=== PATIENT | female | born 1990 | race Caucasian/White ===

== ENCOUNTER 2019-10-23 08:14 | Outpatient (CLI) | payer BC, SELFPAY ==
--- NOTE | ~2019-10-23 | CT_ITS ---
EXAMINATION: CT abdomen pelvis w con EXAM DATE: 10/23/2019 09:10 INDICATION: Left flank pain, thinks passed kidney stone last night. TECHNIQUE: Spiral CT of the abdomen and pelvis was performed following intravenous injection of 100 m L Omnipaque 350. Axial, coronal and sagittal images were reviewed. The dose-length product (DLP) fo r this examination was 163.33 mGy-cm. The exposure was tailored according to patient size (auto mA e xposure control), and iterative reconstruction (ASIR) was used as additional dose reduction technique . There is no prior study for comparison. FINDINGS: The liver, spleen, adrenal glands and pancreas are unremarkable. Gallbladder is unremarkab le. No biliary obstruction. Portal and splenic veins are patent. Kidneys enhance symmetrically. T here is no hydronephrosis. 2 punctate right calyceal calcifications, one 3 mm left calyceal calcifica tion. The uterus is unremarkable. The bladder is unremarkable. There is no retroperitoneal or pel cyril lymphadenopathy. The appendix is normal. The stomach and small bowel are unremarkable. There is expected amount of c olonic stool. No free intraperitoneal gas. The heart is normal in size. There are no pericardial or pleural effusions. The lung bases are unremarkable. The bones are unremarkable. IMPRESSION: 1. No acute intra-abdominal findings. Reviewed, dictated and finalized at location B.
== END 2019-10-23 08:15 | disposition home or self-care (01) ==
PROVIDERS: Visit Provider Obstetrics & Gynecology
DX: R10.9 Unspecified abdominal pain (principal)
CPT/HCPCS: 74177; Q9967

== ENCOUNTER 2020-08-29 09:40 | Outpatient (RCR) | payer BC, SELFPAY ==
[2020-08-30] MEDS: RHO(D) IMMUNE GLOBULIN 300 MCG/2 ML SYRINGE IM (09:30)
== END 2020-11-27 23:59 | disposition home or self-care (01) ==
LOC: ANHLAB 09:40
PROVIDERS: Visit Provider Obstetrics & Gynecology
DX: Z29.13 Encounter for prophylactic Rho(D) immune globulin (principal); O36.0190 Maternal care for anti-D [Rh] antibodies, unspecified trimester, not applicable or unspecified; Z3A.00 Weeks of gestation of pregnancy not specified
CPT/HCPCS: 36415; 85461; 90384; 96372; J2790

== ENCOUNTER 2020-10-11 22:53 | Observation (INO) | payer BC, SELFPAY ==
--- NOTE | 2020-10-11 22:53 | OBADM ---
This patient, Eugenia Leahy, admitted to the OB room Labor/Delivery/Recovery 105 for observation. Patient/family oriented to hospital policies and general routines including ID bracelet, bed and alarms, visiting hours, pain management, procedures, bathroom and other care routines, personal items, smoking policy, room service/diet, and visiting hours. Patient/Family are encouraged to report perceived risks to care and to ask questions if they do not understand what they are told or what they should do.
[2020-10-11 23:15] VITALS: BMI 23.0
--- NOTE | 2020-10-12 08:06 | P.PNOB_ITS ---
OB - Triage/Final Diagnosis Visit Information Date of evaluation: 10/12/20 Reason for evaluation: threatened labor Comments/Additional reasons for admission: I have assessed the risk for this patient, Eugenia Leahy, and determined [facility]
== END 2020-10-12 01:35 | disposition home or self-care (01) ==
PROVIDERS: Admitting Provider Student in an Organized Health Care Education/Training Program; Visit Provider Student in an Organized Health Care Education/Training Program
DX: O47.1 False labor at or after 37 completed weeks of gestation (principal); Z3A.37 37 weeks gestation of pregnancy
CPT/HCPCS: G0378; G0379

== ENCOUNTER 2020-10-21 08:54 | Inpatient (IN) | payer BC, SELFPAY ==
[2020-10-21] VITALS (13 sets, daily range): BP systolic 92–128; BP diastolic 58–79; PULSE 69–91; RESP 16–18; TEMP 36.3–36.8; O2SAT 100; BMI 23.4
[2020-10-21 09:31] LABS: Basophils Absolute Auto 0.1 K/mm3 (0.0-0.1); Basophils Percent Auto 0.6 % (0.2-1.2); Eosinophils Percent Auto 0.3 % (0-4.4); Hematocrit 33.7 % (37.0-47.0); Hemoglobin 12.1 g/dL (12.0-15.0); Immature Granulocyte Absolute 0.17 K/mm3 (0.00-0.031); Immature Granulocyte Percent A 1.5 % (0-0.5); Lymphocytes Absolute Auto 2.78 K/mm3 (0.9-3.2); Lymphocytes Percent Auto 24.8 % (18.3-44.2); Mean Corpuscular HGB Conc 35.9 g/dl (32-36); Mean Corpuscular Volume 91.8 fl (80-100); Mean Platelet Volume 10.3 fl (7.4-10.4); Monocytes Absolute Auto 1.1 K/mm3 (0.1-0.6); Monocytes Percent Auto 9.4 % (2.6-8.5); Neutrophils Absolute Auto 7.1 K/mm3 (1.3-6.7); Neutrophils Percent Auto 63.4 % (45.5-73.1); Platelet Count Result 173 k/mm3 (150-375); Red Blood Count 3.67 M/mm3 (4.2-5.4); Red Cell Distribution Width 12.8 % (11.5-14.5); White Blood Count 11.2 K/mm3 (4.5-10.0)
[2020-10-21] MEDS: OXYTOCIN 30 UNITS/NS 500 ML 30 UNITS/500 ML BAG 999 UNITS IV CONT (09:49)
--- NOTE | 2020-10-21 09:57 | WPDOBADMIT ---
Obstetrics - Admit Note Admission Note: record reviewed. Additions to the history and/or subsequent changes in the physical findings follow. 30 y/o at 38 4/7 weeks here after gush of clear fluid at 0830. History of rapid delivery. GBS neg. AVSS ABD soft, nontender, gravid, vertex EXT nontender Cervix 7/100/0 NST reactive TOCO: contractions every 2-3 min A: IUP at term with SROM. P: Anticipate .
--- NOTE | 2020-10-21 09:59 | PM.OBPRVD ---
OB - Delivery Note Procedure Delivery date: 10/21/20 Procedure: Induction method: none Delivery monitor: external FHT and external uterine Route of delivery: Laceration Description: None Specimen: Yes (cord blood) Quantitative Blood Loss (ml): 95 Anesthesia type: None Disposition: PACU Complications: None Narrative: 30 y/o at 38 4/7 weeks gestation who presented to the hospital after a gush of fluid at 0830, clear. On arrival here she had SROM diagnosed, with cervix 7/100/0. Her labor progressed rapidly and her cervix dilated completely. She pushed with good effort and delivered the 's head to the perineum. A loose nuchal cord was reduced, then the nose and mouth were bulb suctioned. After a delay, the cord was clamped and cut. The infant was handed off the field. Cord blood was collected. The placenta delivered spontaneously and was grossly normal in appearance. The usual 3 vessel cord was noted. The perineum was intact. Excellent hemostasis resulted as did excellent reapproximation of the normal anatomy. Needle and instrument counts were correct. The patient was taken to recovery room in stable condition. The went to the nursery in stable condition. I was present and scrubbed for the entire delivery. Baby Date of : 10/21/20 Time of : 09:45 Weeks of gestation at delivery: 38 gender: Female Weight (pounds): 7 Weight (ounces): 7 presentation: vertex position: Left Occiput Anterior Placenta delivery description: Spontaneous and Normal Configuration cord vessel description: 3 Vessels, Nuchal Cord and Delayed Cord Clamping score one minute: 8 score five minutes: 9
[2020-10-21] MEDS: OXYTOCIN 30 UNITS/NS 500 ML 30 UNITS/500 ML BAG 125 UNITS IV CONT (10:10)
--- NOTE | 2020-10-21 11:58 | PC.NURSE ---
Patient transferred to post room # 292 per wheelchair. Support person present. Oriented to unit, room, information board, rooming in, admission packet and security measures. Patient verbalizes understanding.
[2020-10-21] MEDS: IBUPROFEN 600 MG TABLET PO ×2 (13:21→21:02)
--- NOTE | 2020-10-21 14:55 | PC.NURSE ---
consult with pt., mother reports this to be 3rd child to breastfeed. Mother states infant has eagerly fed twice since . Mother is able to independently latch infant with appropriate positioning/alignment. She denies any nipple discomfort. Reviewed infant feeding cues, frequencies, duration of feedings, feeding elimination flow sheet, and signs of adequate intake. Nipple care reviewed. Instructed mother to call out for RN assistance if she is unable to latch infant for feeding or she has discomfort with nursing. Instructed feeding should be initiated three hours from start of last feeding or if feeding cues are noted before. Mother voiced understanding of information shared.
[2020-10-21] MEDS: LANOLIN (LANSINOH) 7.5 GM CREAM 1 APPLIC TOPICAL (16:14)
[2020-10-21] MEDS: DOCUSATE SODIUM 100 MG CAPSULE PO (16:14)
[2020-10-22 03:30] VITALS: BP 98/65; PULSE 82; RESP 16; TEMP 36.9
[2020-10-22] MEDS: IBUPROFEN 600 MG TABLET PO ×2 (03:30→09:50)
[2020-10-22 04:50] LABS: Hematocrit 30.7 % (37.0-47.0); Hemoglobin 10.6 g/dL (12.0-15.0)
--- NOTE | 2020-10-22 07:30 | PC.NURSE ---
PT introductions made and plan of care discussed per post , pain management, breast feeding daily care activities and pending discharge to home. PT verbalized understanding and received instructions one to one discussion, mom baby care guide and demonstrations. PT and fob both recipients of such instructions and no barriers to learning identified.
--- NOTE | 2020-10-22 08:56 | P.PNOB_ITS ---
OB - PN: Subj Subjective Date/time seen: 10/22/20 08:56 Narrative: Pain OK. Would like to go home. OB - PN: Obj Data Labs CBC & Chem 7: 10/22/20 04:07 Labs: Laboratory Results - last 24 hr 10/21/20 10/21/20 10/22/20 09:22 09:22 04:07 WBC 11.2 H RBC 3.67 L Hgb 12.1 10.6 L Hct 33.7 L 30.7 L MCV 91.8 MCH 33.0 MCHC 35.9 RDW 12.8 Plt Count 173 MPV 10.3 Immature Gran % (Auto) 1.5 H Neut % (Auto) 63.4 Lymph % (Auto) 24.8 [place] % (Auto) 9.4 H Eos % (Auto) 0.3 Baso % (Auto) 0.6 Lymph # (Auto) 2.78 [place] # (Auto) 1.1 H Eos # (Auto) 0.0 Baso # (Auto) 0.1 Abs Immat Gran (auto) 0.17 H Absolute Neuts (auto) 7.1 H Absolute Nucleated RBC 0.0 Nucleated RBC % 0.0 Blood Type O Negative Antibody Screen Positive Antibody Identification Passive Due to RH Imm Glob Antigen Identification Cancelled GARRY, IgG Interpret Not Performed GARRY, Poly Interpret Negative GARRY, Complement Interp Not Performed OB - PN A/P Plan Comments: A: PPD#1, doing well. P: Home to f/u 6 weeks. Exam Psych: Other: AVSS ABD soft, nontender, fundus firm EXT nontender
--- NOTE | 2020-10-22 08:58 | PM.OBDSVD ---
DS: Admitting Diagnosis Admitting Diagnosis Admitting Diagnosis: IUP at term SROM DS: Discharge Diagnosis Discharge Diagnosis (1) (normal spontaneous vaginal delivery): Code(s): O80 - Encounter for full-term uncomplicated delivery Status: Acute OB - DS: Summary OB Procedures : None OB Procedures Intrapartum: Spontaneous Vag Delivery OB Procedures: : None DS: Data Data Completed and Pending Labs on day of discharge: Labs from last 24 hours 10/22/20 10/21/20 10/21/20 04:07 09:22 09:22 WBC RBC Hgb 10.6 L Hct 30.7 L MCV MCH MCHC RDW Plt Count MPV Immature Gran % (Auto) Neut % (Auto) Lymph % (Auto) [place] % (Auto) Eos % (Auto) Baso % (Auto) Lymph # (Auto) [place] # (Auto) Eos # (Auto) Baso # (Auto) Abs Immat Gran (auto) Absolute Neuts (auto) Absolute Nucleated RBC Nucleated RBC % RPR Pending Blood Type O Negative Antibody Screen Positive Antibody Identification Passive Due to RH Imm Glob Antigen Identification Cancelled GARRY, IgG Interpret Not Performed GARRY, Poly Interpret Negative GARRY, Complement Interp Not Performed 10/21/20 09:22 WBC 11.2 H RBC 3.67 L Hgb 12.1 Hct 33.7 L MCV 91.8 MCH 33.0 MCHC 35.9 RDW 12.8 Plt Count 173 MPV 10.3 Immature Gran % (Auto) 1.5 H Neut % (Auto) 63.4 Lymph % (Auto) 24.8 [place] % (Auto) 9.4 H Eos % (Auto) 0.3 Baso % (Auto) 0.6 Lymph # (Auto) 2.78 [place] # (Auto) 1.1 H Eos # (Auto) 0.0 Baso # (Auto) 0.1 Abs Immat Gran (auto) 0.17 H Absolute Neuts (auto) 7.1 H Absolute Nucleated RBC 0.0 Nucleated RBC % 0.0 RPR Blood Type Antibody Screen Antibody Identification Antigen Identification GARRY, IgG Interpret GARRY, Poly Interpret GARRY, Complement Interp Discharge Plan Discharge Attending physician on discharge: Sravan Goff Discharging Clinician: Sravan Goff Patient Disposition: Home, Self-Care Activity: pelvic rest Diet: regular Discharge Instructions: Education: Mom and Baby Guide Given to: Mother Follow-Up: Call your delivering provider's office for an appointment to be seen in: 4 Weeks Mom and baby should come to the [facility] for the follow-up appointment. Appointment Date/Time: October 24, 2020 at 11:00 am What to expect at your follow-up visit: Blood Pressure Check Call [phone] if you are unable to keep your appointment time. BREAST CARE: * Wear a snug supportive bra. * For engorgement discomfort: Breast Feeding: * Apply warm moist washcloths * Express milk as needed to relieve engorgement * Wear loose clothing Bottle Feeding: * May apply ice packs * For sore nipples: * Identify correct latch-on * Apply warm moist washcloths before and after nursing * Air dry nipples after nursing * May apply Lansinoh cream to nipples PERINEAL CARE: * Until bleeding stops, use your regis bottle after urinating * Change your pad frequently throughout the day * You may take sitz baths several times a day (fill your bathtub with warm water and soak for 20 minutes.) Do NOT bathe in the water * No tub baths until seen by your physician - You may shower ACTIVITY: * Rest as much as possible. * Do not exercise or lift anything heavier than your baby (such as laundry or other children.) * Avoid stairs or driving as much as possible. * Do not put anything into the vagina. No douching, tampons, or sexual activity until seen by physician. NOTIFY PHYSICIAN IF YOU HAVE ANY QUESTIONS OR IF ANY OF THE FOLLOWING SYMPTOMS OCCUR: * If your perineum becomes red, swollen, or more painful than what you have experienced in the hospital. * If your vaginal bleeding becomes foul smelling. * If your vaginal bleeding becomes more heavy than a period or if your bleeding changes from p
[2020-10-22 09:15] VITALS: BP 108/73; PULSE 94; RESP 18; TEMP 36.7; O2SAT 99
--- NOTE | 2020-10-22 09:45 | PC.NURSE ---
Observed mother is able to independently latch with appropriate positioning/alignment. She denies any nipple discomfort, is feeding as required and waking infant to feed if needed. has had at least 8 effective feedings in the past 24 hours, and is currently meeting outcomes for weight, output, jaundice and feeding frequencies. Mother states she feels confident to continue effective at home. Reviewed transition to breast milk, signs of adequate intake, and engorgement/relief. Instructed to call ICP if intake/output less than required. Reviewed regular medications mother is taking. Information provided per Siri. Reviewed community resources on the [facility] website and in the Mom/Baby guide. Information on outpatient services provided. Mother has no further questions at this time.
[2020-10-22] MEDS: DOCUSATE SODIUM 100 MG CAPSULE PO (09:52)
[2020-10-22] MEDS: MULTIVIT/MIN/PREN/FOL AC/IRON TABLET 1 TAB PO (09:52)
[2020-10-22 09:53] VITALS: PULSE 94; RESP 18; O2SAT 99
[2020-10-22] MEDS: ACETAMINOPHEN 325 MG TABLET 650 MG PO (09:53)
--- NOTE | 2020-10-22 12:15 | PC.NURSE ---
PT discharged to home via ambulatory accompanied by spouse and and taken to waiting car. Follow up appts confirmed
[2020-10-22 12:43] LABS: Rapid Plasma Reagin Non-Reactive (NonReactive)
[2020-10-24 10:57] VITALS: BP 108/76; PULSE 83; RESP 16; TEMP 36.9; O2SAT 99
== END 2020-10-22 12:15 | disposition home or self-care (01) | DRG 807 ==
LOC: ANHLDR 08:57 → ANHOB2 12:01
PROVIDERS: Admitting Provider Obstetrics & Gynecology; Visit Provider Obstetrics & Gynecology
DX: O62.3 Precipitate labor (principal); Z37.0 Single live birth; O69.81X0 Labor and delivery complicated by cord around neck, without compression, not applicable or unspecified; Z3A.38 38 weeks gestation of pregnancy
CPT/HCPCS: 36415; 84112; 85014; 85018; 85025; 86592; 86850; 86880; 86900; 86901; 86902; A9270; J2590

== ENCOUNTER 2021-06-16 11:53 | Outpatient (CLI) | payer BC, SELFPAY ==
--- NOTE | ~2021-06-16 | XR_ITS ---
EXAMINATION: XR abdomen/kub 1V INDICATION: Pelvic pain TECHNIQUE: Supine views of the abdomen were obtained on 2 radiographs. COMPARISON: CT, 10/23/2019 FINDINGS: The bowel gas pattern is normal. There are no dilated loops of bowel. There is a phlebolith of the left pelvis. The visualized osseous structures are unremarkable IMPRESSION: 1. No radiographic correlate for the patient's symptoms. Reviewed, dictated and finalized at location A. SORY SOFTWARE ENGINEER
== END 2021-06-16 11:54 | disposition home or self-care (01) ==
LOC: ANHIMG 12:02
PROVIDERS: Visit Provider Nurse Practitioner Adult Health
DX: R10.2 Pelvic and perineal pain (principal)
CPT/HCPCS: 74018

== ENCOUNTER 2022-07-20 13:14 | Outpatient (CLI) | payer BC, SELFPAY ==
--- NOTE | ~2022-07-20 | XR_ITS ---
EXAMINATION: XR abdomen/kub 1V INDICATION: Bilateral renal stones TECHNIQUE: Supine views of the abdomen were obtained on 2 radiographs. COMPARISON: 06/16/2021 FINDINGS: A 2 mm calcification projects in the lower pole of the left kidney. There is a questionable 2 mm stone of the right kidney. No stones are identified along the expected courses of the ureters o r bladder. There is a phlebolith of the left pelvis. The bowel gas pattern is normal. IMPRESSION: 1. Left nephrolithiasis and probable right nephrolithiasis. Reviewed, dictated and finalized at location L.
== END 2022-07-20 13:15 | disposition home or self-care (01) ==
PROVIDERS: PCP Obstetrics & Gynecology; Visit Provider Nurse Practitioner Adult Health
DX: N20.0 Calculus of kidney (principal)
CPT/HCPCS: 74018

== ENCOUNTER 2023-04-20 07:42 | Outpatient (CLI) | payer BC, SELFPAY ==
--- NOTE | ~2023-04-20 | XR_ITS ---
EXAMINATION: XR chest 2V DATE: 04/20/2023 07:57 INDICATION: Chest tightness TECHNIQUE: PA and lateral views of the chest are obtained. COMPARISON: None available FINDINGS: The lungs are free of acute opacities. No pleural effusion or pneumothorax. The cardiomedia stinal silhouette is normal. The visualized bones and soft tissues are unremarkable. IMPRESSION: 1. No acute cardiopulmonary abnormality. Reviewed, dictated and finalized at location B. ECT MANAGEMENT ENGINEER
[2023-04-20 08:47] LABS: Alanine Aminotransferase 19 U/L (6-35); Albumin Level 4.6 g/dL (3.5-5.1); Alkaline Phosphatase 67 U/L (38-126); Anion Gap 6 mmol/L (8-16); Aspartate Amino Transferase 29 U/L (14-36); Bilirubin,Total 0.8 mg/dL (0.2-1.3); Blood Urea Nitrogen 11 mg/dL (7-17); Calcium 9.2 mg/dL (8.4-10.2); Carbon Dioxide 28 mmol/L (22-30); Chloride 103 mmol/L (98-107); Cholesterol 161 mg/dL (0-200); Estimated Glomerular Filt Rate > 60; Glucose 78 mg/dL (65-110); HDL Direct 63 mg/dL; Potassium 4.3 mmol/L (3.4-5.0); Sodium 137 mmol/L (137-145); Triglycerides 67 mg/dL (<150)
[2023-04-20 08:50] LABS: Hemoglobin A1C 4.7 % (<5.7)
[2023-04-20 08:58] LABS: LDL Cholesterol Direct 86 mg/dL
== END 2023-04-20 07:43 | disposition home or self-care (01) ==
PROVIDERS: PCP Emergency Medicine; Visit Provider Emergency Medicine
DX: R07.9 Chest pain, unspecified (principal)
CPT/HCPCS: 36415; 71046; 80053; 80061; 83036

== ENCOUNTER 2023-04-22 09:32 | Outpatient (CLI) | payer BC, SELFPAY ==
--- NOTE | 2023-04-22 10:23 | EST_ITS ---
Patient Info Name: Eugenia Leahy Age: 32 years : 1990 Gender: Female Ht: 63 in Wt: 115 lbs BSA: 1.52 m2 HR: 87 bpm BP: 126 / 79 mmHg Heart Rhythm: Sinus Rhythm Exam Date: 04/22/2023 10:32 AM Exam Location: Echo Lab Patient Status: Outpatient Admit Date: 04/22/2023 Staff Ordering Physician: Jason Casillas MD Attending Provider: Jason Casillas MD Exercise Technologist: Aspen Estrada CT Exercise Physician: Mick Crisostomo DO Exam Type: CA stress test treadmill Study Info Indications R07.89 - Other chest pain A treadmill exercise stress test was performed. Summary 1. 1. Negative Jv exercise stress test for ischemic ST changes by ECG criteria. 2. 2. Good functional capacity, achieving 10 METs of workload. 3. 3. Appropriate HR response to exercise. 4. 4. Appropriate HR recovery at 1 minute post exercise. 5. 5. No imaging with stress testing. 6. 6. Pateint informed of the above results. Protocol: Jv Stress ECG Details Stage: REST Duration (min): 2 min : 41 sec Speed (mph): 0.0 Grade (%): 0 HR (bpm): 86 SBP (mmHg): 126 DBP (mmHg): 79 METS: --- Stage: REST Duration (min): 8 min : 27 sec Speed (mph): 0.0 Grade (%): 0 HR (bpm): 96 SBP (mmHg): 126 DBP (mmHg): 79 METS: --- Stage: STAGE 1 Duration (min): 1 min : 0 sec Speed (mph): 1.7 Grade (%): 10 HR (bpm): 115 SBP (mmHg): 126 DBP (mmHg): 79 METS: --- Stage: STAGE 1 Duration (min): 2 min : 0 sec Speed (mph): 1.7 Grade (%): 10 HR (bpm): 123 SBP (mmHg): 126 DBP (mmHg): 79 METS: --- Stage: STAGE 1 Duration (min): 3 min : 0 sec Speed (mph): 1.7 Grade (%): 10 HR (bpm): 123 SBP (mmHg): 141 DBP (mmHg): 71 METS: --- Stage: STAGE 2 Duration (min): 1 min : 0 sec Speed (mph): 2.5 Grade (%): 12 HR (bpm): 132 SBP (mmHg): 141 DBP (mmHg): 71 METS: --- Stage: STAGE 2 Duration (min): 2 min : 0 sec Speed (mph): 2.5 Grade (%): 12 HR (bpm): 138 SBP (mmHg): 169 DBP (mmHg): 64 METS: --- Stage: STAGE 2 Duration (min): 3 min : 0 sec Speed (mph): 2.5 Grade (%): 12 HR (bpm): 147 SBP (mmHg): 169 DBP (mmHg): 64 METS: --- Stage: STAGE 3 Duration (min): 1 min : 0 sec Speed (mph): 3.4 Grade (%): 14 HR (bpm): 154 SBP (mmHg): 132 DBP (mmHg): 61 METS: --- Stage: STAGE 3 Duration (min): 2 min : 0 sec Speed (mph): 3.4 Grade (%): 14 HR (bpm): 163 SBP (mmHg): 132 DBP (mmHg): 61 METS: --- Stage: STAGE 3 Duration (min): 3 min : 0 sec Speed (mph): 3.4 Grade (%): 14 HR (bpm): 162 SBP (mmHg): 135 DBP (mmHg): 70 METS: --- Stage: STAGE 4 Duration (min): 0 min : 1 sec Speed (mph): 4.2 Grade (%): 16 HR (bpm): 162 SBP (mmHg): 135 DBP (mmHg): 70 METS: --- Stage: RECOVERY Duration (min): 0 min : 58 sec Speed (mph): 0.0 Grade (%): 0 HR (bpm): 142 SBP (mmHg): 135 DBP (mmHg): 70 METS:
== END 2023-04-22 09:33 | disposition home or self-care (01) ==
LOC: ANHCARD 09:33
PROVIDERS: PCP Emergency Medicine; Visit Provider Emergency Medicine
DX: R07.9 Chest pain, unspecified (principal)
CPT/HCPCS: 93017

== ENCOUNTER 2023-12-30 00:19 | Day surgery (SDC) | payer BC, SELFPAY ==
[2023-12-27 15:23] VITALS: BMI 20.7
--- NOTE | 2023-12-27 15:37 | PC.NURSE ---
Report to the Outpatient Waiting Room, entrance under the green pavilion located off [facility], at time _0930 on date _12/30/23 . Planned Procedure Time: 1130 .? Time changes happen often and if your time is changed the preop area will call you the afternoon before. - You and your visitor will be asked to self-screen and do not enter if you have any COVID symptoms. Please call surgeon if you need to reschedule. - A mask is optional within the hospital at this time. Patients may have clear liquids (water, carbonated beverages, clear teas, apple juice) until 3 hours prior to surgery with a maximum of 20 ounces. - No food from midnight until time of surgery and no smoking Take only the following medications with a SIP of water on the morning of surgery: __N/A DO NOT STOP ANY OF YOUR OTHER PRESCRIPTION MEDICATIONS PRIOR TO SURGERY EXCEPT THE FOLLOWING Medications to discontinue per physician N/A Date to take last dose___N/A Please no make-up, nail setswana, hairspray, perfume, deodorant, or body powder the day of surgery.? No jewelry (including any body piercings) or valuables the day of surgery, leave them at home.? Please take a shower or bath the night before, or the morning of, surgery with an antibacterial soap.? Wear comfortable, loose fitting clothing.? Children are encouraged to wear pajamas. - Jewelry must be removed prior to entering the operating room.? Rings and piercings that are not removed may be cut off. - The hospital will not accept responsibility for valuables.? - Please leave all valuables, including medications, at home the day of surgery. If you are going home after surgery, a licensed pizza delivery driver must drive you home.? - NO public transportation without another adult if you receive anesthesia. - We recommend that an adult stay with you for 24 hours following discharge. - We also recommend that you do not drive, make important decision, drink alcoholic beverages, or take any drugs that were not prescribed by your health care provider for at least 24 hours after your discharge time. Follow any additional instructions given to you from your surgeon. Telephone instructions given to __CAROLINEE and asked if any additional questions and then verbalized understanding. Patient advised to call surgeon office or pre surgery nurse liaison [phone] if any additional questions.
--- NOTE | 2023-12-30 00:22 | P.HP_ITS ---
H&P: HPI History of Present Illness Date/Time: 12/30/23 00:22 Chief Complaint: Miscarriage Narrative: 33 y/o at 10w2d by LMP. She had an ultrasound exam in the office on 12/26 which showed an embryo with CRL consistent with 7w6d and no cardiac motion. She has had no bleeding. She has no cramping. She is Rh Neg. Review of Systems Review of Systems: All systems reviewed & are unremarkable except as noted in HPI and below PMFSH Surgical History Surgical History History of foot surgery Family History Family History Other No pertinent family history Social History Social History Smoking status: Never smoker Second hand tobacco smoke exposure: No Alcohol intake: never Substance use: current Substance use type: marijuana Last use: 10/25/23 Lack of Transportation: No Lack of Food: Never True Current Housing: I Have Housing Concerned About Future Housing: No Difficulty Paying Gas/Electric Bills: No Difficulty Paying for Meds: No Currently Unemployed: No Education: Bachelor's Degree Difficulty w/ Childcare or Family Care: No Living arrangements: with family Spiritual care concerns: No Meds Home Medications and Allergies Home Medications Medication Instructions Recorded Confirmed Type No Home Medications 12/27/23 12/27/23 History Allergies Allergy/AdvReac Type Severity Reaction Status Date / Time No Known Allergies Allergy Unknown Verified 12/27/23 15:30 Exam Const: Orientation/consciousness: patient oriented x3 Other: Well-developed, well-nourished female in no acute distress. Neck: Thyroid: thyroid normal Lymphatic: no lymphadenopathy noted (in neck, axilla or inguinal nodes) Resp: Effort & Inspection: normal respiratory effort Auscultation: clear to auscultation bilaterally Cardio: Rate: regular rate Rhythm: regular rhythm Heart sounds: S1 no rmal heart sound present and S2 normal heart sound present GI: Other: ABD: Soft, nontender, nondistended. No guarding or rebound tenderness. No hepatosplenomegaly. : General: Yes no CVA tenderness Other: Deferred to OR Back/Spine/Pelvis: Back: no CVA tenderness Skin: General skin exam: normal color and no rashes or lesions noted Neuro: General: patient oriented x3 Extrem: Other: Extremities: nontender with no edema Psych: Mental Status: mental status grossly normal Affect: normal affect Assessment and Plan Assessment and plan (1) Missed : Code(s): O02.1 - Missed Status: Acute Assessment and Plan: A: Missed spontaneous P: Offered expectant management vs surgical management. She prefers the latter. Specifically, I have offered her dilation and suction curettage. She understands risks of surgery to include risks of anesthesia, risks of pain, infection, bleeding, blood products, thromboembolic phenomena and damage to adjacent structures such as bowel, bladder, ureters, blood vessels and nerves. She understands all these risks and elects to proceed with surgery.
--- NOTE | 2023-12-30 07:29 | P.PNAN_ITS ---
Anes - Initial Pre Proc Eval Procedure: Operation Date: 12/30/23 11:00 Proposed Procedures p Suction Dilatation and Curettage - Sravan Goff MD Date/Time: 12/30/23 07:29 Surgeon: Sravan Goff MD Pre Op Diagnosis: missed ab Patient Data Age: 33 Gender: F Height: 1.6 m Weight: 53 kg Allergies Allergy/AdvReac Type Severity Reaction Status Date / Time nitrofurantoin Allergy Severe Hives Verified 12/30/23 09:06 [From Macrobid] Home Medications Medication Instructions Recorded Confirmed Type No Home Medications 12/27/23 12/27/23 History Patient hx anesthesia problems: none Family hx anesthesia problems: none Results Review: All pre-operative results and documents have been reviewed as part of the pre- operative evaluation. [facility] Past Medical History Medical History (Updated 12/30/23 @ 07:29 by Valentin Gaming DO) Anxiety Surgical History Surgical History History of foot surgery Family History Family History Other No pertinent family history Social History Social History Smoking status: Never smoker Second hand tobacco smoke exposure: No Alcohol intake: never Substance use: current Substance use type: marijuana Last use: 10/25/23 Lack of Transportation: No Lack of Food: Never True Current Housing: I Have Housing Concerned About Future Housing: No Difficulty Paying Gas/Electric Bills: No Difficulty Paying for Meds: No Currently Unemployed: No Education: Bachelor's Degree Difficulty w/ Childcare or Family Care: No Living arrangements: with family Spiritual care concerns: No Anes - Eval Final PreProcedure Day of Procedure 12/30/23 07:29 Patient weight: normal Heart: regular rate and rhythm Lungs: clear to auscultation and normal air movement Airway: Mallampati scale class II Neurological: alert and oriented Last oral intake: >/= 8 hours ASA classification: II Emergent: no Anesthetic plan: proceed Anesthesia type and monitoring: general GIVS and standard monitoring Results Review: All pre-operative results and documents have been reviewed as part of the pre- operative evaluation. Informed Consent: The patient's anesthetic plan and its attendant risks and benefits were discussed with the patient/family/POA. Questions were solicited and answers provided to the satisfaction of the patient/family/POA.
[2023-12-30 09:13] VITALS: BP 117/80; PULSE 99; RESP 20; TEMP 37; O2SAT 100
[2023-12-30] MEDS: LACTATED RINGERS 1,000 ML 30 ML IV CONT (09:35)
[2023-12-30] MEDS: ACETAMINOPHEN 500 MG TABLET 1000 MG PO (09:46)
--- NOTE | 2023-12-30 11:11 | WPDHPUPDATE1 ---
History and Physical Update Update Date/Time: 12/30/23 11:11 History and Physical has been reviewed, including an updated exam of the patient. There are NO changes in the patient's condition. Risks, benefits, and alternatives have been discussed and questions answered. Patient agrees to proceed with procedure.
[2023-12-30] MEDS: LIDOCAINE HCL 1% LOCAL INJ 10 ML VIAL INFILTRATE (11:16)
--- NOTE | 2023-12-30 11:35 | W.PM.PROC2 ---
Procedure Note - Detailed Date of Procedure 12/30/23 Pre-op Diagnosis Missed Spontaneous Post-op Diagnosis Same Procedure Performed Dilation and suction curettage Surgeon Sravan Goff MD Anesthesia MAC and Local (1% lidocaine) Findings POC noted Description of Procedure The patient was taken to the operating room where she was prepared and draped in the usual sterile fashion in the dorsal lithotomy position. The bladder was drained with a red rubber catheter. A sterile speculum was placed into the vagina. The anterior lip of the cervix was grasped with a single-tooth tenaculum. Ten mL of 1% lidocaine was administered in a paracervical block. The cervix was gently dilated using Hegar dilators until an 8 mm dilator could be passed. The 8mm curved tip suction curette was advanced. Suction curettage was performed and products of conception were aspirated. Sharp curettage was then performed until a good uterine cry was noted. A final pass with the suction curette was made. The tenaculum was removed. Hemostasis was excellent. Sponge, lap, needle and instrument counts were correct. The patient was taken to the recovery room in stable condition. I was present and scrubbed for the entire procedure. Implants None Estimated Blood Loss 50 Drains No Packing No Pathology Yes (Endometrial curettings) Complications None Condition Stable Disposition PACU
[2023-12-30 11:40] VITALS: BP 110/73; PULSE 82; RESP 15; O2SAT 100
[2023-12-30] MEDS: RHO(D) IMMUNE GLOBULIN 300 MCG/2 ML SYRINGE IM (11:58)
[2023-12-30 12:10] VITALS: BP 117/71; PULSE 97; RESP 18; O2SAT 100
[2023-12-30 12:25] VITALS: BP 108/72; PULSE 94; RESP 20
== END 2023-12-30 12:29 | disposition home or self-care (01) ==
PROVIDERS: PCP Emergency Medicine; Visit Provider Obstetrics & Gynecology
PROC: (CPT 59820; principal; 2023-12-30 11:00)
DX: O02.1 Missed abortion (principal)
CPT/HCPCS: 59820; 36415; 85461; 86850; 86900; 86901; 88305; 90384; A9270; J1100; J2250; J2405; J2704; J2790; J3010; J7120

== ENCOUNTER 2024-03-15 16:01 | Outpatient (CLI) | payer BC, SELFPAY ==
--- NOTE | ~2024-03-15 | XR_ITS ---
Exam: Abdomen 1V HISTORY: bilateral renal stone COMPARISON: None. TECHNIQUE: Supine images of the abdomen and pelvis. FINDINGS: Bowel gas pattern is non-obstructive. There is no free air or deep sulci. Redemonstration of a 2.5 mm density projecting over the left kidney. Extensive fecal stasis projects over the expected region of the right kidney, limiting evaluation. Lung bases are unremarkable. Bones and soft tissues are unremarkable. IMPRESSION: Left renal calculus, as detailed above. Reviewed, dictated and finalized at location A. R COLORER
== END 2024-03-15 16:02 | disposition home or self-care (01) ==
PROVIDERS: PCP Emergency Medicine; Visit Provider Physician Assistant
DX: N20.0 Calculus of kidney (principal)
CPT/HCPCS: 74018

== ENCOUNTER 2024-03-18 09:47 | Emergency (ER) | payer BC, SELFPAY ==
[2024-03-18] VITALS (11 sets, daily range): BP systolic 107–116; BP diastolic 68–87; PULSE 70–107; RESP 14–16; TEMP 36.8; O2SAT 94–100
--- NOTE | ~2024-03-18 | CT_ITS ---
EXAMINATION: CT brain wo con DATE: 03/18/2024 15:27 INDICATION: possible seizure . TECHNIQUE: Computed tomography (CT) of the head was performed without intravenous contrast. The mA wa s adjusted according to patient size. Iterative reconstruction technique was employed. The dose-lengt h product was 605.33 mGy-cm. COMPARISON: None. FINDINGS: No acute intracranial hemorrhage or extra-axial fluid collection. No hydrocephalus, mass, or herniation. No acute ischemic infarct. Unremarkable dural venous sinus attenuation. No acute osseous abnormality. The aerated spaces are clear. IMPRESSION: No acute intracranial process. Reviewed, dictated and finalized at location K. CTOR LEARNING AND DEVELOPMENT
--- NOTE | ~2024-03-18 | CT_ITS ---
EXAMINATION: CT abdomen pelvis wo con DATE: 03/18/2024 15:26 INDICATION: left flank pain TECHNIQUE: Computed tomography (CT) of the abdomen and pelvis was performed without intravenous contr ast. Automated exposure control and iterative reconstruction technique were employed. The dose-length product was 166.56 mGy-cm. COMPARISON: 10/23/2019. FINDINGS: Lower thorax: Unremarkable Liver: Multiple liver cysts measuring up to 3.6 cm in the left lobe. Biliary/Gallbladder: Gallbladder is normal. No bile duct dilation. Pancreas: No mass or duct dilation. Spleen: Normal. Adrenals:No mass. Kidneys: No suspicious mass, obstructing stone, or hydronephrosis. Bilateral punctate nonobstructive calculi. GI tract: No small or large bowel dilation. Normal appendix. Mesentery/Peritoneum: No ascites, mass, or free air. Retroperitoneum: No mass. Pelvis: Pelvic organs are within normal limits. Soft Tissues: Soft tissues and body wall unremarkable. Bones: No acute osseous finding. IMPRESSION: No acute abdominopelvic process detected. Reviewed, dictated and finalized at location K. FARM MANAGER
--- NOTE | 2024-03-18 14:23 | ED_ITS ---
HPI - Back Pain/Injury General Chief Complaint: Back Pain/Injury Stated Complaint: bilateral kidney pain Time Seen by Provider: 03/18/24 13:42 Source: patient and RN notes reviewed Mode of arrival: ambulatory Limitations: no limitations History of Present Illness HPI Narrative: This is a 33 year old female who presents for evaluation of kidney stones. Patient states she has been having left flank pain since . She reports her pain is intermittent but it is worsening. She called her urologist office and she had an xray done on Tuesday. She reports nausea but denies vomiting or fever. She reports her urine has been pink at times. She denies abdominal pain. She also reports throbbing frontal headache. Related Data Allergies Allergy/AdvReac Type Severity Reaction Status Date / Time nitrofurantoin Allergy Severe Hives Verified 12/30/23 09:06 [From Macrobid] Review of Systems Review of Systems: All systems reviewed & are unremarkable except as noted in HPI and below PMFSH Past Medical History Medical History Anxiety Surgical History Surgical History History of foot surgery Family History Family History Other No pertinent family history Social History Social History Smoking status: Never smoker Second hand tobacco smoke exposure: No Alcohol intake: never Substance use: current Substance use type: marijuana Last use: 10/25/23 Lack of Transportation: No Lack of Food: Never True Current Housing: I Have Housing Concerned About Future Housing: No Difficulty Paying Gas/Electric Bills: No Difficulty Paying for Meds: No Currently Unemployed: No Education: Bachelor's Degree Difficulty w/ Childcare or Family Care: No Living arrangements: with family Spiritual care concerns: No Exam Const: General: no acute distress and alert Nutritional Appearance: well nourished Orientation/consciousness: patient oriented x3 Limitations: no limitations HENMT: Head: normal to inspection Eyes: Pupils: Equal, round and reactive pupils present EOM: EOMs intact bilaterally Chest: Chest palpation & inspection: normal inspection of the chest Resp: Effort & Inspection: normal respiratory effort Auscultation: clear to auscultation bilaterally Cardio: Rate: regular rate Rhythm: regular rhythm Heart sounds: no murmurs GI: Auscultation: normal bowel sounds : General: Yes no CVA tenderness Back/Spine/Pelvis: Back: no CVA tenderness Skin: General skin exam: normal color Rashes: no rashes Wounds: no wounds Neuro: General: patient oriented x3 and moves all extremities Extrem: General: normal to inspection Psych: Mental Status: mental status grossly normal Affect: normal affect Attitude: cooperative Course Reevaluation(s) Reevaluation #1: I discussed labs and imaging with patient and her mother. She reports her headache has resolved after IV fluids, compazine and toradol. Urinalysis shows ketosis. Patient is not eating very much. She reports nausea this week. She is also have increased anxiety. We discussed her syncopal episodes. Patient has syncopal episodes of IV sticks. It is reported that patient had episode in which nurse was sticking for an IV and patient felt like she was going to pass out. Patient went unresponsive for 30 seconds , no shaking, no postictal. mother witnessed this episode. I discussed this sounds like vasovagal response. They are comfortable with discharge and follow up with PCP or OBGYN regarding anxiety that may be due to Date: 03/18/24 Time: 16:00 Consultations Date: 03/18/24 Time: 16:41 Vital Signs Vital signs: Vital Signs Pulse Rate 92 03/18/24 13:37 Respiratory Rate 16 03/18/24 13:37 Blood Pressure 116/87 03/18/24 13:37 Pulse Oximetry 94 03/18/24 13:37 Temperature 98.3 F 03/18/24 14:29 Pulse Rate 107 H 03/18/24 16:00 Respiratory Rate 14 03/18/24 16:00 Blood Pressure 109/74 03/18/24 15:01 Pulse Oximetry 98 03/18/24 16:00 MDM - Back Pain/Injury Differential Diagnosis Differential diagnosis: Likely strain of lumbar region, renal colic, pyelon ephritis and other (dehydration) Medical Records Attestation: I reviewed the patient's medical records. Lab Data Attestation: I reviewed the patient's lab results. 03/18/24 14:51 03/18/24 14:51 Labs: Lab Results 03/18/24 Range/Units 14:51 WBC 9.1 (4.5-10.0) K/mm3 RBC 4.28 (4.2-5.4) M/mm3 Hgb 14.0 D (12.0-15.0) g/dL Hct 38.7 (37.0-47.0) % MCV 90.4 (80-100) fl MCH 32.7 (26-34) pg MCHC 36.2 H (32-36) g/dl RDW 11.9 (11.5-14.5) % Plt Count 290 D (150-375) k/mm3 MPV 9.4 (7.4-10.4) fl Immature Gran % (Auto) 0.2 (0-0.5) % Neut % (Auto) 77.2 H (45.5-73.1) % Lymph % (Auto) 17.2 L (18.3-44.2) % [place] % (Auto) 5.1 (2.6-8.5) % Eos % (Auto) 0.0 (0-4.4) % Baso % (Auto) 0.3 (0.2-1.2) % Lymph # (Auto) 1.56 (0.9-3.2) K/mm3 [place] # (Auto) 0.5 (0.1-0.6) K/mm3 Eos # (Auto) 0.0 (0-0.3) K/mm3 Baso # (Auto) 0.0 (0.0-0.1) K/mm3 Abs Immat Gran (auto) 0.02 (0.00-0.031) K/mm3 Absolute Neuts (auto) 7.0 H (1.3-6.7) K/mm3 Absolute Nucleated RBC 0.000 (0.0-0.012) K/mm3 Nucleated RBC % 0.0 (0.0-0.2) % % Immature Plt Fraction 2.1 (0.9-11.2) % Sodium 137 (137-145) mmol/L Potassium 3.6 (3.4-5.0) mmol/L Chloride 100 (98-107) mmol/L Carbon Dioxide 26 (22-30) mmol/L Anion Gap 11 (4-12) mmol/L BUN 8 (7-17) mg/dL Creatinine 0.60 L (0.7-1.0) mg/dL Estim Creat Clear Calc 89 ml/min Estimated GFR > 60 (59 - ) Glucose 79 (65-110) mg/dL Calcium 9.4 (8.4-10.2) mg/dL Total Bilirubin 1.1 (0.2-1.3) mg/dL AST 22 (14-36) U/L ALT 12 (6-35) U/L Alkaline Phosphatase 54 (38-126) U/L Total Protein 7.0 (6.3-8.2) g/dL Albumin 4.6 (3.5-5.1) g/dL Urine Color Yellow (Yellow) Urine Appearance Clear (Clear) Urine pH 5.5 (5.0-9.0) Ur Specific [place] 1.018 (1.001-1.035) Urine Protein Negative (Negative) mg/dL Urine Glucose (UA) Negative (Negative) mg/dL Urine Ketones 4+ H (Negative) mg/dL Ur Blood (Man) Negative (Negative) Urine Nitrate Negative (Negative) Urine Bilirubin Negative (Negative) Urine Urobilinogen 1.0 (<2.0) mg/dL Leukocyte Esterase Rfl Negative (Negative) JOSE/UL Imaging Data Radiologist's impression: ITS Impressions Head CT 03/18/24 15:32 IMPRESSION: No acute intracranial process. Abdomen/Pelvis CT 03/18/24 15:38 IMPRESSION: No acute abdominopelvic process detected. ECG Data EKG #1: Attestation: I personally reviewed and interpreted this ECG as follows: ECG completion date: 03/18/24 ECG completion time: 16:38 EKG Interpretation: normal rate (85), no ST changes, NL axis and no acute changes Discharge Plan Discharge Clinical Impression: Acute left-sided back pain, Acute dehydration, Syncope, vasovagal Patient Disposition: Home, Self-Care Condition: Stable Instructions: Antibiotic Form, Syncope (ED), Acute Low Back Pain (ED) Additional Instructions: Please drink plenty of fluids and eat 3 proper meals a day. Call your primary care provider or your OBGYN to discuss your anxiety issues. REturn to ER if symptoms worsen. Prescriptions: New ondansetron 4 mg tablet,disintegrating 4 mg PO Q8H PRN (Reason: nausea and vomiting) Qty: 14 0RF No Action hydrocodone-acetaminophen 5-325 mg tablet 1 - 2 tablet PO Q6H PRN (Reason: pain) Qty: 20 0RF Follow-up/Referrals: Jason Casillas MD [Primary Care Provider] -
--- NOTE | 2024-03-18 14:42 | PC.NURSE ---
At approx 14:37 when RN starting IV, pt was already in lying down position when she stated that she was going to pass out. Pt had syncopal episode, however, her back arched up, head tilted back, bilateral pupils became very dilated. Pt's mother reports she passes out frequently, and tried to lift her legs but was having trouble due to pt's stiffness. RN laid down HOB and was holding IV site, as it was not yet taped down when this started. Pt was unresponsive for approximately 20 seconds where she became very pale. Afterward, pt quickly became responsive and was aware that she passed out, was instantly A&Ox4. Pt's mother stated that she normally doesn't get tense like that when she passes out. Pt reconnected to monitors. MD Andino made aware, plan to add on a head CT.
[2024-03-18] MEDS: SODIUM CHLORIDE 0.9% IV 1,000 ML 999 ML IV CONT (14:43)
[2024-03-18] MEDS: PROCHLORPERAZINE EDISYLATE 10 MG/2 ML VIAL IV PUSH (14:44)
[2024-03-18] MEDS: KETOROLAC 15 MG/ML VIAL (*BKC) IV PUSH (14:48)
--- NOTE | 2024-03-18 15:02 | ECG_ITS ---
Test Date: 2024-03-18 16:38:30 Measurements Intervals [place] Rate: 85 P: 68 TX: 145 QRS: 46 QRSD: 90 T: 36 QT: 385 QTc: 458 Interpretive Statements SINUS RHYTHM BORDERLINE ST-T WAVE ABNORMALITY- INFERIOR LEADS BASELINE ARTIFACT- I, II, III, AVR, AVL, AVF, V1-V3 BORDERLINE ECG No previous ECG available for comparison Electronically Signed On 03-18-2024 18:52:19 SCIENTIST/ENGINEER by Mick Crisostomo D.O.
[2024-03-18 15:03] LABS: Add Urine Microscopic? NO; Appearance Urine Clear (Clear); Bilirubin Urine Negative (Negative); Blood Urine Negative (Negative); Color Urine Yellow (Yellow); Glucose Urine UA Negative (Negative); Ketones Urine 4+ mg/dL (Negative); Leukocyte Esterase Ur Negative LEU/UL (Negative); Nitrate Urine Negative (Negative); Protein Urine Negative (Negative); Specific Grav Ur 1.018 (1.001-1.035); pH Urine 5.5 (5.0-9.0)
[2024-03-18 15:16] LABS: Alanine Aminotransferase 12 U/L (6-35); Albumin Level 4.6 g/dL (3.5-5.1); Alkaline Phosphatase 54 U/L (38-126); Anion Gap 11 mmol/L (4-12); Aspartate Amino Transferase 22 U/L (14-36); Bilirubin,Total 1.1 mg/dL (0.2-1.3); Blood Urea Nitrogen 8 mg/dL (7-17); Calcium 9.4 mg/dL (8.4-10.2); Carbon Dioxide 26 mmol/L (22-30); Chloride 100 mmol/L (98-107); Estimated CRCL calculation 89 ml/min; Estimated Glomerular Filt Rate > 60; Glucose 79 mg/dL (65-110); Potassium 3.6 mmol/L (3.4-5.0); Sodium 137 mmol/L (137-145)
[2024-03-18 15:24] LABS: Basophils Percent Auto 0.3 % (0.2-1.2); Hematocrit 38.7 % (37.0-47.0); Immature Granulocyte Absolute 0.02 K/mm3 (0.00-0.031); Immature Granulocyte Percent A 0.2 % (0-0.5); Immature Platelet Fraction Pct 2.1 % (0.9-11.2); Lymphocytes Absolute Auto 1.56 K/mm3 (0.9-3.2); Lymphocytes Percent Auto 17.2 % (18.3-44.2); Mean Corpuscular HGB Conc 36.2 g/dl (32-36); Mean Corpuscular Hemoglobin 32.7 pg (26-34); Mean Corpuscular Volume 90.4 fl (80-100); Mean Platelet Volume 9.4 fl (7.4-10.4); Monocytes Absolute Auto 0.5 K/mm3 (0.1-0.6); Monocytes Percent Auto 5.1 % (2.6-8.5); Neutrophils Percent Auto 77.2 % (45.5-73.1); Platelet Count Result 290 k/mm3 (150-375); Red Blood Count 4.28 M/mm3 (4.2-5.4); Red Cell Distribution Width 11.9 % (11.5-14.5); White Blood Count 9.1 K/mm3 (4.5-10.0)
[2024-03-19 10:05] LABS: BEDSIDEPREGUCG Negative (Negative)
== END 2024-03-18 17:09 | disposition home or self-care (01) ==
PROVIDERS: Emergency Provider General Practice; PCP Emergency Medicine
DX: M54.9 Dorsalgia, unspecified (principal); E86.0 Dehydration; R55 Syncope and collapse; F41.9 Anxiety disorder, unspecified
CPT/HCPCS: 36415; 70450; 74176; 80053; 81003; 81025; 85025; 85055; 93005; 96361; 96374; 96375; 99284; J0780; J1885; J7030

== ENCOUNTER 2024-08-06 11:25 | Outpatient (CLI) | payer BC, SELFPAY ==
--- OUTSIDE RECORDS SUMMARY | 2024-08-06 13:24 | XMS_ITS | Referral Summary ---
Author Organization [address] Address [address] [place] [id number] Care Team Providers Care Assistant Teacher Primary Name Role Phone Unknown, Notinfile Primary Care Provider Unavail able Unknown, Notinfile Unavailable Unavailable Allergies No known active allergies Medications escitalopram (LEXAPRO) 10 mg tablet Take 1 tablet (10 mg total) by mouth daily 10/10/2022 Active Active Problems No known active problems Social History Tobacco Use Types Packs/Day Years Used Date Smoking Tobacco: Never Assessed Comments Unknown Sex and Gender Information Value Date Recorded Sex Assigned at Not on file 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 Gender Identity Not on file Sexual Orientation Not on file Last Filed Vital Signs Vital Sign Reading Time Taken Comments Blood Pressure 115/75 01/09/2023 5:34 PM CDT Pulse 90 01/09/2023 5:34 PM CDT Temperature 37 C (98.6 F) 01/09/2023 5:34 PM CDT Respiratory Rate 16 01/09/2023 5:34 PM CDT Oxygen Saturation 98% 01/09/2023 5:34 PM CDT Inhaled Oxygen Concentration - - Weight 52.2 kg (115 lb) 01/09/2023 5:34 PM CDT Height 160 cm (5' 3 ) 01/09/2023 5:34 PM CDT Body Mass Index 20.37 01/09/2023 5:34 PM CDT Plan of Treatment Not on file Insurance [place] [id number] [place] [employer] [employer] [place] Care Teams Assistant Teacher Primary Relationship Specialty Start Date End Date Unknown, Notinfile PCP - General 01/09/23 Unknown, Notinfile 01/09/23
--- OUTSIDE RECORDS SUMMARY | 2024-08-06 13:24 | XMS_ITS | Clinical Summary ---
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 Gender Identity Not on file Sexual Orientation Not on file Obstetrics History Last Filed Vital Signs Vital Sign Reading [...] 01/09/2023 5:34 PM CDT Plan of Treatment Health Maintenance Due Date Last Done Comments Cervical Cancer Screening 1989 Depression Screening 1989 Hepatitis C Screening 1989 Varicella Vaccines (1 of 2 - 13+ 2-dose series) 2002 Regular Well Visit/Exam 18-64 2007 Covid-19 Vaccine (2023- season) 2024 03/27/2021, 08/04/2020, 07/13/2020 Influenza Vaccine (#1) 2024 03/27/2021, 2014 DTaP/Tdap/Td Vaccine (9 - Td or Tdap) 08/18/2030 08/18/2020, 09/21/2016, 04/20/2013, Additional history exists Hepatitis B Screening Completed 09/09/2014, 015 HPV Vaccines Aged Out No longer eligi ble based on patient's age to complete this topic Pneumococcal vaccine <65 Aged Out No longer eligible based on patient's age to complete this topic Insurance [employer] [place] [employer] [place] [employer] [place] [employer] [place] Care Teams Water Resource Manager Relationship Specialty Start Date End Date Unknown, Notinfile PCP - General 01/09/23 Unknown, Notinfile 01/09/23
--- OUTSIDE RECORDS SUMMARY | 2024-08-06 13:24 | XMS_ITS | Continuity of Care Document ---
Author Organization [facility] Address [address] [place] [address] Phone Care Team Providers Care Biscuit Maker Name Role Phone Inge HERNADEZ, Gabby Unavailable [...] Encounter [facility], [address], [place], [place], [id number] , tel: [phone] [facility] No Information 7 Rosa Pierre. [address], [place], [place], [address], [place]. [phone] OFFICE OUTPT EST 25 MIN [facility], [address], [place], [place], [id number] , tel: [phone] [facility] IOB (chief complaint) Encounter for suprvsn of normal , first trimesterEncounter for other screening for genetic and chromosomal anomalies9 weeks gestation of pregnancyEncntr for barrel drainer exam (general) (routine) w abnormal findings 6 Rosa Pierre. [address], [place], [place], [address], [place]. tel:[phone] Referring Provider: Gabby cervantes, [address], [place], [address]. [phone] [facility], [address], [place], [place], [address] , tel: [phone] [facility] No Information 6 Dary Oneil. [address], [place], [place], [address], [place]. tel:[phone] Referring Provider: Clarice Foote, [address], [place], [address]. tel:[phone] [facility], [address], [place], [place], [address] , tel: [phone] [facility] routine (chief complaint) Anxiety (chief complaint) Encounter for suprvsn of normal , first trimesterLess than 8 weeks gestation of 6 Management Case. [address], [place], [place], [address], [place]. tel:[phone] Referring Provider: Gabby cervantes, [address], [place], [address]. tel:[phone] lting Provider: Anel Nobles, [address], [place], [address]. tel:[phone] OFFICE O/P EST 5 MIN [facility], [address], [place], [place], [id number] , [place] tel: [phone] [facility] PT only (chief complaint) Encounter for test, result positiveEncounter for test, result unknown 6 Nurse Registered. [address], [place], [place], [address], [place]. tel:[phone] Referring Provider: Registered Nurse, [address], [place], [address]. tel:[phone] [facility], [address], [place], [place], [address] , [place] tel: [phone] [facility] No Information Dec- 6 Tepe Clarice. [address], [place], [place], [address], [place]. tel:[phone] Referring Provider: Gabby cervantes, [address], [place], [address]. tel:[phone] 1ST COMPRE PREV MED E/M NEW PT 18-39 [facility], [address], [place], [place], [address] , [place] tel: [phone] [facility] annual exam (chief complaint) Encounter for routine barrel drainer exam w/ abnormal findingAbnormal uterine bleedingEncntr screen for infections w sexl mode of transmissEncounter for immunizationEncoun ter for other screening for cancer of breast Sep- 6 Rosa Pierre. [address], [place], [place], [address], [place]. tel:[phone] Referring Provider: Gabby cervantes, [address], [place], [address]. tel:[phone] Family History Family Member Type Diagnosis Age [...] Record Payers Payer name Insurance type Covered republican ID Authoriza tion(s) No Information Social History Type Description Quantity Date Captured Comments Alcohol Use Details Unknown Caffeine Use Details Unknown Tobacco Use Status No Information Smoking Status No Information Sex Female Chief Complaint And Reason For Visit No Information Reason For Referral Reason For Referral No Information Plan Of Treatment Date Type Action Status Referral Referred To: [facility] Ul[facility]ounds [address], [place], [phone] Ordered: Referrals: Radiology. [facility] Ultrasounds. 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 h/o STISA, one male partner x 8 years, no condomsMOC - ARIADNE (unsure of name of pill, desires 3 packs at a time)s/p Gardasil Functional Status Date Functional Assessmen t No Information Instructions Date Instruction Additional Infor mation Reviewed breast self-awareness R elated to Encounter for routine barrel drainer exam w/ abnormal finding Use condoms for prev ention of sexually transmitted infections Related to Encntr screen for infections w sexl mode of transmiss Assessments Type Assessment Date No Information Patient Care Teams Name Effective Dates (start - stop) Status Members No Information
[2024-08-06] MEDS: RHO(D) IMMUNE GLOBULIN 300 MCG/2 ML SYRINGE IM (17:28)
== END 2024-08-06 11:26 | disposition home or self-care (01) ==
PROVIDERS: Visit Provider Obstetrics & Gynecology
DX: O46.90 Antepartum hemorrhage, unspecified, unspecified trimester (principal); Z3A.00 Weeks of gestation of pregnancy not specified; Z67.91 Unspecified blood type, Rh negative
CPT/HCPCS: 36415; 85461; 86850; 86900; 86901; 90384; 96372; J2790

== ENCOUNTER 2024-12-27 07:05 | Outpatient (RCR) | payer BC, SELFPAY ==
--- OUTSIDE RECORDS SUMMARY | 2016-10-14 04:02 | XMS_ITS | Continuity of Care Document ---
Author Organization [facility] Address [address] [place] [address] Phone Care Team Providers Care Item Processor Name Role Phone Inge HERNADEZ, Gabby Unavailable [...] Encounter [facility], [address], [place], [place], [address] , tel: [phone] [facility] No Information 7 Rosa Pierre. [address], [place], [place], [address], [place]. [phone] OFFICE OUTPT EST 25 MIN [facility], [address], [place], [place], [address] , tel: [phone] [facility] IOB (chief complaint) Encounter for suprvsn of normal , first trimesterEncounter for other screening for genetic and chromosomal anomalies9 weeks gestation of pregnancyEncntr for metal handler exam (general) (routine) w abnormal findings 6 Rosa Pierre. [address], [place], [place], [address], [place]. tel:[phone] Referring Provider: Gabby cervantes, [address], [place], [address]. [phone] [facility], [address], [place], [place], [address] , tel: [phone] [facility] No Information 6 Dary Oneil. [address], [place], [place], [address], [place]. tel:[phone] Referring Provider: Clarice Foote, [address], [place], [address]. tel:[phone] [facility], [address], [place], [place], [address] , tel: [phone] [facility] routine (chief complaint) Anxiety (chief complaint) Encounter for suprvsn of normal , first trimesterLess than 8 weeks gestation of 6 Management Case. [address], [place], [place], [address], [place]. tel:[phone] Referring Provider: Gabby cervantes, [address], [place], [address]. tel:[phone] lting Provider: Anel Nobles, [address], [place], [address]. tel:[phone] OFFICE O/P EST 5 MIN [facility], [address], [place], [place], [address] , [place] tel: [phone] [facility] PT only (chief complaint) Encounter for test, result positiveEncounter for test, result unknown 6 Nurse Registered. [address], [place], [place], [address], [place]. tel:[phone] Referring Provider: Registered Nurse, [address], [place], [address]. tel:[phone] [facility], [address], [place], [place], [address] , [place] tel: [phone] [facility] No Information Dec- 6 Tepe Clarice. [address], [place], [place], [address], [place]. tel:[phone] Referring Provider: Gabby cervantes, [address], [place], [address]. tel:[phone] 1ST COMPRE PREV MED E/M NEW PT 18-39 [facility], [address], [place], [place], [address] , [place] tel: [phone] [facility] annual exam (chief complaint) Encounter for routine metal handler exam w/ abnormal findingAbnormal uterine bleedingEncntr screen for infections w sexl mode of transmissEncounter for immunizationEncoun ter for other screening for cancer of breast Sep- 6 Rosa Pierre. [address], [place], [place], [address], [place]. tel:[phone] Referring Provider: Gabby cervantes, [address], [place], [address]. tel:[phone] Family History Family Member Type Diagnosis Age [...] Record Payers Payer name Insurance type Covered alliance party ID Authoriza tion(s) No Information Social History Type Description Quantity Date Captured Comments Alcohol Use Details Unknown Caffeine Use Details Unknown Tobacco Use Status No Information Smoking Status No Information Sex Female Chief Complaint And Reason For Visit No Information Reason For Referral Reason For Referral No Information Plan Of Treatment Date Type Action Status Referral Referred To: [facility] Ultrasounds [address], [place], [phone] Ordered: Referrals: Radiology. [facility] Ultrasounds. Diagnostic testing ordered History Of Present Illness Encounter Date Complaint History Of Prese nt Illness IOB routine 03/11/16 PN int monika completed at [facility] with 25yo at 6.6wks by LMP 01/23/16, [...] 08/2014 NIL per pt, no h/o abnl ([place] [employer] [place], [place])No h/o STISA, one male partner x [...] self-awareness R elated to Encounter for routine metal handler exam w/ abnormal finding Assessments Type Assessment Date No Information Patient Care Teams Name Effective Dates (start - stop) Status Members No Information
--- OUTSIDE RECORDS SUMMARY | 2024-12-22 12:38 | XMS_ITS | Clinical Summary ---
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 Gender Identity Not on file Sexual Orientation [...] 5:34 PM CDT Height 160 cm (5' 3) 01/09/2023 5:34 PM CDT Body Mass Index 20.37 01/09/2023 5:34 PM CDT Plan of Treatment Health Maintenance Due Date Last Done Comments Cervical Cancer Screening 1989 Depression Screening 1989 Hepatitis C Screening 1989 Varicella Vaccines (1 of 2 - 13+ 2-dose series) 2002 Regular Well Visit/Exam 18-64 2007 HPV Vaccines (1 - 3-dose SCDM series) 2016 Covid-19 Vaccine ( - season) 2024 03/27/2021, 08/04/2020, 07/13/2020 Influenza Vaccine (#1) 2024 03/27/2021, 2014 DTaP/Tdap/Td Vaccine (9 - Td or Tdap) 08/18/2030 08/18/2020, 09/21/2016, 04/20/2013, Additional history exists Hepatitis B Screening Completed 09/09/2014, 015 Pneumococcal vaccine <65 Aged Out No longer eligible based on patient's age to complete this topic Insurance [employer] [place] [employer] [place] [id number] [employer] [place] Care Teams Special Education Educational Assistant Relationship Specialty Start Date End Date Unknown, Notinfile PCP - General 01/09/23 Unknown, Notinfile 01/09/23
[2024-12-22 13:51] LABS: Hematocrit 29.4 % (37.0-47.0); Hemoglobin 10.5 g/dL (12.0-15.0); Mean Corpuscular HGB Conc 35.7 g/dl (32-36); Mean Corpuscular Hemoglobin 33.7 pg (26-34); Mean Corpuscular Volume 94.2 fl (80-100); Platelet Count Result 201 k/mm3 (150-375); Red Blood Count 3.12 M/mm3 (4.2-5.4); White Blood Count 12.2 K/mm3 (4.5-10.0)
[2024-12-22 14:16] LABS: Glucose 1 Hour PP 50gm Dose 103 mg/dL
[2024-12-22 14:44] LABS: Syphilis IgG/IgM Antibody Non-Reactive (Nonreactive)
[2024-12-22 14:57] LABS: HIV 1/2 Ab P24 Ag Result Negative (Negative)
[2024-12-23] MEDS: RHO(D) IMMUNE GLOBULIN 300 MCG/2 ML SYRINGE IM (15:48)
== END 2024-12-27 07:30 | disposition home or self-care (01) ==
LOC: ANHLAB 07:05
PROVIDERS: PCP Nurse Practitioner Family; Visit Provider Nurse Practitioner Family
DX: Z34.90 Encounter for supervision of normal pregnancy, unspecified, unspecified trimester (principal); Z29.13 Encounter for prophylactic Rho(D) immune globulin
CPT/HCPCS: 36415; 82947; 85027; 85461; 86593; 86703; 86850; 86900; 86901; 90384; 96372; G0432; J2790

== ENCOUNTER 2025-02-17 03:15 | Observation (INO) | payer BC, SELFPAY ==
[2025-02-17 03:22] VITALS: TEMP 36.9
[2025-02-17 03:32] VITALS: BP 116/79; PULSE 118
[2025-02-17 04:00] VITALS: BP 111/73; PULSE 99
[2025-02-17 04:45] VITALS: BMI 24.5
--- NOTE | 2025-02-17 04:57 | PC.NURSE ---
Pt discharged home undelivered in stable condition per order from Dr. Amin. Discharged instructions explained and given to pt, pt stated understanding, all questions and concerns answered. Pt ambulated out of department with all belongings, S.O @ pt side.
--- NOTE | 2025-02-19 09:13 | PM.OBTRLD ---
OB - Triage/Final Diagnosis Visit Information Reason for evaluation: threatened labor Comments/Additional reasons for admission: I have assessed the risk for this patient, Eugenia Leahy, and determined that she would benefit from observation care.
== END 2025-02-17 04:57 | disposition home or self-care (01) ==
PROVIDERS: Admitting Provider Obstetrics & Gynecology; Visit Provider Obstetrics & Gynecology
DX: O47.03 False labor before 37 completed weeks of gestation, third trimester (principal); Z3A.36 36 weeks gestation of pregnancy
CPT/HCPCS: G0378; G0379

== ENCOUNTER 2025-03-06 23:22 | Inpatient (IN) | payer BC, SELFPAY ==
--- OUTSIDE RECORDS SUMMARY | 2016-10-14 03:02 | XMS_ITS | Continuity of Care Document ---
Author Organization [facility] Address [address] [place] [address] Phone Care Team Providers Care Upholsterer Helper Name Role Phone Inge HERNADEZ, Gabby Unavailable Unava ilable Allergies, Adverse Reactions, Alerts Substance Reaction Status Criticality No Known Allergies Active No Inform ation Medications Medication Instructions Dosage Effective Dates (start - stop) Status Comments Multi 27 mg-800 mcg tablet take one tablet by mouth once daily. - Active Procedures Procedure Date OFFICE OUTPT EST 25 MIN Urinalysis, Auto, w/o Scope COLLECTION OF VENOUS BLOOD BY VENIPUNCTU RE BLOOD COUNT; COMPLETE (CBC), AUTOMATED D IFF IAAD EIA HEP B SURF AG HEPATITIS C ANTIBODY; HIV-1 Antigen, W/HIV-1 & HIV-2 Antibody, Single Re SYPHILIS TEST; QUALITATIVE (EG, VDRL, RP R, ART) OB US < 14 Weeks, Single Fetus 16 care, at-risk assessment care, at-risk enhanced service; antepartum management MENTAL HEALTH ASSESSMENT, BY NON-PHYSICI AN OFFICE O/P EST 5 MIN URINE TEST, BY VISUAL COLOR CO MPARISON METHODS Non-OB Ultrasound, Pelvic, Complete 1ST COMPRE PREV MED E/M NEW PT 18-39 Dec Immun admin-adult or WO counseling - fir st vaccine/toxoid Influenza Virus Vaccine, Mendoza drivalent, Preservative Free, 3 and Older, Intraderm Urinalysis, Auto, w/o Scope URINE TEST, BY VISUAL COLOR CO MPARISON METHODS COLLECTION OF VENOUS BLOOD BY AXEL ROJAS Advance Directives Directive Yes / No Effective Date File Name No Information Encounters Encounter Description Practice Location Reason(s) For Visit Diagnoses Date Provider Providers Copied on Encounter [facility], [address], [place], [place], [id number] , tel: [phone] [facility] No Information 7 Rosa Pierre. [address], [place], [place], [address], [place]. [phone] OFFICE OUTPT EST 25 MIN [facility], [address], [place], [place], [address] , tel: [phone] [facility] IOB (chief complaint) Encounter for suprvsn of normal , first trimesterEncounter for other screening for genetic and chromosomal anomalies9 weeks gestation of pregnancyEncntr for field marketing associate exam (general) (routine) w abnormal findings 6 Rosa Pierre. [address], [place], [place], [address], [place]. tel:[phone] Referring Provider: Gabby cervantes, [address], [place], [address]. [phone] [facility], [address], [place], [place], [address] , tel: [phone] [facility] No Information 6 Dary Oneil. [address], [place], [place], [address], [place]. tel:[phone] Referring Provider: Clarice Foote, [address], [place], [address]. tel:[phone] [facility], [address], [place], [place], [address] , tel: [phone] [facility] routine (chief complaint) Anxiety (chief complaint) Encounter for suprvsn of normal , first trimesterLess than 8 weeks gestation of 6 Management Case. [address], [place], [place], [address], [place]. tel:[phone] Referring Provider: Gabby cervantes, [address], [place], [address]. tel:[phone] lting Provider: Anel Nobles, [address], [place], [address]. tel:[phone] OFFICE O/P EST 5 MIN [facility], [address], [place], [place], [address] , [place] tel: [phone] [facility] PT only (chief complaint) Encounter for test, result positiveEncounter for test, result unknown 6 Nurse Registered. [address], [place], [place], [address], [place]. tel:[phone] Referring Provider: Registered Nurse, [address], [place], [address]. tel:[phone] [facility], [address], [place], [place], [address] , [place] tel: [phone] [facility] No Information Dec- 6 Tepe Clarice. [address], [place], [place], [address], [place]. tel:[phone] Referring Provider: Gabby cervantes, [address], [place], [address]. tel:[phone] 1ST COMPRE PREV MED E/M NEW PT 18-39 [facility], [address], [place], [place], [address] , [place] tel: [phone] [facility] annual exam (chief complaint) Encounter for routine field marketing associate exam w/ abnormal findingAbnormal uterine bleedingEncntr screen for infections w sexl mode of transmissEncounter for immunizationEncoun ter for other screening for cancer of breast Sep- 6 Rosa Pierre. [address], [place], [place], [address], [place]. tel:[phone] Referring Provider: Gabby cervantes, [address], [place], [address]. tel:[phone] Family History Family Member Type Diagnosis Age At Onset Problem (finding) No family hist ory of Cancer, endometrial Problem (finding) No family hist ory of Cancer, colon Maternal grandmother Problem (finding) malignant neopl asm of ovary Problem (finding) No family hist ory of Cancer, breast Immunizations Vaccine Date Status Comments Influenza, injectable, 3 yrs or older (Fluzone) administered Source: New Immuniza tion Record Payers Payer name Insurance type Covered green party ID Authoriza tion(s) No Information Social History Type Description Quantity Date Captured Comments Alcohol Use Details Unknown Caffeine Use Details Unknown Tobacco Use Status No Information Smoking Status No Information Sex Female Chief Complaint And Reason For Visit No Information Reason For Referral Reason For Referral No Information Plan Of Treatment Date Type Action Status Referral Referred To: [facility] Ultrasounds [address], [place], [phone] Ordered: Referrals: Radiology. [facility] Ultrasounds. Diagnostic testing ordered History Of Present Illness Encounter Date Complaint History Of Prese nt Illness IOB routine 03/11/16 PN int monika completed at [facility] with 25yo at 6.6wks by LMP 01/23/16, EDC 10/29/16. First full term,uncomplicated. See scanned documents for more information. class teaching reviewed as follows; anticipated course of care to ensure healthy and good delivery outcomes, avoid eating raw meat or unpasteurized dairy products, appropriate over the counter medications, hospital facilities, no drug, alcohol, tobacco use in and risk it pose to fetus, exercising in , healthy fluid intake; nutrition and weight gain in , vitamins daily, risk factors identified by history, s/s of miscarriage, seat belt use. Client v/u of all teaching and denies further questions. Anel Nobles RN, BSN. Anxiety See ROS PT only annual exam 25 y/o h ere for annual examFTVD x 1LMP regular, intermenstrual bleeding on occasion, no postcoital bleedingLast pap 08/2014 NIL per pt, no h/o abnl ([place] [employer] [place], [place])No h/o STISA, one male partner x 8 years, no condomsMOC - ARIADNE (unsure of name of pill, desires 3 packs at a time)s/p Gardasil Functional Status Date Functional Assessmen t No Information Instructions Date Instruction Additional Infor mation Use condoms for prev ention of sexually transmitted infections Related to Encntr screen for infections w sexl mode of transmiss Reviewed breast self-awareness R elated to Encounter for routine field marketing associate exam w/ abnormal finding Assessments Type Assessment Date No Information Patient Care Teams Name Effective Dates (start - stop) Status Members No Information
[2025-03-06 13:00] VITALS: BMI 24.3
[2025-03-06 23:42] VITALS: BP 123/88; PULSE 106; PULSE 99; O2SAT 99
[2025-03-06 23:45] VITALS: BP 109/80; PULSE 115
[2025-03-06 23:47] VITALS: PULSE 93; O2SAT 100
[2025-03-06 23:47] LABS: Hematocrit 35.9 % (37.0-47.0); Hemoglobin 12.9 g/dL (12.0-15.0); Immature Granulocyte Percent A 1.4 % (0-0.5); Lymphocytes Absolute Auto 3.85 K/mm3 (0.9-3.2); Mean Corpuscular HGB Conc 35.9 g/dl (32-36); Mean Corpuscular Hemoglobin 33.3 pg (26-34); Mean Corpuscular Volume 92.8 fl (80-100); Nucleated Red Blood Cells Absolute Auto 0.000 K/mm3 (0.0-0.012); Nucleated Red Blood Cells Perc 0.0 % (0.0-0.2); Platelet Count Result 222 k/mm3 (150-375); Red Blood Count 3.87 M/mm3 (4.2-5.4); White Blood Count 14.0 K/mm3 (4.5-10.0)
[2025-03-06 23:52] VITALS: PULSE 98; O2SAT 100
[2025-03-06 23:57] VITALS: PULSE 115; O2SAT 99
[2025-03-07] VITALS (16 sets, daily range): BP systolic 97–120; BP diastolic 60–82; PULSE 66–127; RESP 16–18; TEMP 36.7–37; O2SAT 96–100
[2025-03-07] MEDS: OXYTOCIN 30 UNITS/NS 500 ML 30 UNITS/500 ML BAG 999 UNITS IV CONT (00:17)
--- NOTE | 2025-03-07 00:22 | PM.IMHP ---
H&P: HPI History of Present Illness Date/Time: 03/07/25 00:22 Chief Complaint: Contractions Narrative: 34 y/o at 38 weeks presented to L and D in active labor. Cervix dilated to 8. She started luis at 1030. PNC significant for precipitous delivery, AMA, h/o anxiety stable on Lexapro. GBS neg. Review of Systems Review of Systems: All systems reviewed & are unremarkable except as noted in HPI and below Constitutional: Constitutional: Reports no additional constitutional complaints and Denies headache(s) Eyes: Eyes: Denies spots in vision ENT: Reports system reviewed and no additional complaints, except as documented and Denies headache(s) Cardiovascular: Cardiovascular: Denies chest pain and Denies dyspnea Respiratory: Respiratory: Denies dyspnea Gastrointestinal: Gastrointestinal: Reports no additional gastrointestinal complaints Genitourinary: Genitourinary: Reports amenorrhea Musculoskeletal: Musculoskeletal: Reports no additional musculoskeletal complaints Integumentary/Breasts: Skin/Breast: Denies breast mass and Denies rash Neurologic: Denies headache(s) Psychiatric: Psychiatric: Reports no additional psychiatric complaints [facility] Past Medical History Medical History Anxiety Surgical History Surgical History History of foot surgery Family History Family History Other Patient denies significant medical history Social History Social History Smoking status: Never smoker Second hand tobacco smoke exposure: No Alcohol intake: never Substance use: never Substance use type: marijuana Last use: 10/25/23 Lack of Transportation: No Lack of Food: Never True Current Housing: I Have Housing Concerned About Future Housing: No Difficulty Paying Gas/Electric Bills: No Difficulty Paying for Meds: No Currently Unemployed: No Education: Bachelor's Degree Difficulty w/ Childcare or Family Care: No Living arrangements: with family Spiritual care concerns: No Meds Home Medications and Allergies Home Medications ?Medication ?Instructions ?Recorded ?Confirmed ?Type docosahexaenoic acid 200 mg 200 mg PO DAILY 11/15/24 02/28/25 History capsule ( DHA) escitalopram oxalate 10 mg tablet 10 mg PO DAILY 11/15/24 02/28/25 History (Lexapro) docusate sodium 100 mg tablet 100 mg PO DAILY 01/03/25 02/28/25 History (Stool Softener) ferrous sulfate 325 mg (65 mg 325 mg PO DAILY 01/03/25 02/28/25 History iron) tablet Allergies Allergy/AdvReac Type Severity Reaction Status Date / Time nitrofurantoin (From Allergy Severe Hives Verified 03/06/25 23:45 Macrobid) Vital Signs Vital Signs - 24 hr 03/06/25 23:42 03/06/25 23:45 03/06/25 23:47 Pulse Rate 99 115 H Blood Pressure 123/88 109/80 Pulse Oximetry 99 100 03/06/25 23:52 03/06/25 23:57 03/07/25 00:02 Pulse Rate Blood Pressure Pulse Oximetry 100 99 100 03/07/25 00:04 03/07/25 00:06 Pulse Rate Blood Pressure Pulse Oximetry 100 100 Exam Const: General: no acute distress Eyes: General: appearance normal, both eyes and all related structures Resp: Effort & Inspection: normal respiratory effort Cardio: Rate: regular rate GI: Other: Gravid no fundal tenderness no right upper quadrant pain Skin: General skin exam: no rashes or lesions noted Neuro: Cognition (Neuro): normal cognition Extrem: General: normal to inspection Psych: Mental Status: mental status grossly normal H&P: Results Labs Labs: Short CBC 03/06/25 Range/Units 23:38 WBC 14.0 H (4.5-10.0) K/mm3 Hgb 12.9 (12.0-15.0) g/dL Hct 35.9 L (37.0-47.0) % Plt Count 222 (150-375) k/mm3 Assessment and Plan Assessment and plan (1) Active labor: Status: Acute Assessment and Plan: 1. Admit 2. Anticipate vaginal delivery.
[2025-03-07 00:25] LABS: Syphilis IgG/IgM Antibody Non-Reactive (Nonreactive)
--- NOTE | 2025-03-07 00:28 | PM.OBPRVD ---
OB - Vaginal Delivery Note Procedure Delivery date: 03/07/25 Induction method: None Delivery monitor: External FHT Route of delivery: Episiotomy description: None Laceration Description: None Quantitative Blood Loss (ml): 150 Anesthesia type: None Disposition: Floor Complications: No immediate complications Narrative: She presented in active labor at 8. Cervix anterior rim. AROM clear. She delivered a female over intact perineum. Nose mouth suctioned at perineum. Cord clamped after 45 seconds and baby taken to monitor. Cord blood and cord gases obtained. Placenta delivered spontaneous and intact. She tolerated procedure well. Baby Date of : 03/07/25 Time of : 12:13 Gestational Age by Date: 38 Infant gender: Female presentation: vertex position: Right Occiput Anterior Placenta delivery description: Spontaneous Cord Vessel Description: 3 Vessels
--- NOTE | 2025-03-07 00:49 | LDADM ---
This patient, Eugenia Leahy, was admitted to Labor/Delivery/Recovery 105 on 03/06/25 at 23:22. Plans for labor, pain management and were discussed with patient. Patient/family oriented to hospital policies and general routines including ID bracelet, bed and alarms, visiting hours, pain management, procedures, bathroom and other care routines, personal items, smoking policy, room service/diet and guest tray routines, infant security routines, and visiting hours. Patient/Family are encouraged to report perceived risks to care and to ask questions if they do not understand what they are told or what they should do. See OBIX for further documentation.
[2025-03-07] MEDS: OXYTOCIN 30 UNITS/NS 500 ML 30 UNITS/500 ML BAG 125 UNITS IV CONT (00:57)
[2025-03-07] MEDS: IBUPROFEN 600 MG TABLET PO ×3 (02:16→16:54)
--- NOTE | 2025-03-07 02:58 | OBPPTRN ---
Patient transferred to post room #290 via wheelchair. Support person present. Oriented to unit, room, information board, rooming in, admission packet and security measures. Patient verbalizes understanding.
[2025-03-07] MEDS: MULTIVIT/MIN/PREN/FOL AC/IRON TABLET 1 TAB PO (10:06)
--- NOTE | 2025-03-07 14:33 | PM.OBPNVD ---
OB - PN: Subj Subjective Date/time seen: 03/07/25 14:33 Narrative: Pain OK. OB - PN: Obj Data Labs 03/06/25 23:38 Labs: Laboratory Results - last 24 hr 03/06/25 23:38 WBC 14.0 H RBC 3.87 L Hgb 12.9 Hct 35.9 L MCV 92.8 MCH 33.3 MCHC 35.9 RDW 13.6 Plt Count 222 MPV 9.7 Immature Gran % (Auto) 1.4 H Neut % (Auto) 60.3 Lymph % (Auto) 27.6 [place] % (Auto) 9.7 H Eos % (Auto) 0.6 Baso % (Auto) 0.4 Lymph # (Auto) 3.85 H [place] # (Auto) 1.4 H Eos # (Auto) 0.1 Baso # (Auto) 0.1 Abs Immat Gran (auto) 0.20 H Absolute Neuts (auto) 8.4 H Absolute Nucleated RBC 0.000 Nucleated RBC % 0.0 Syphilis IgG/IgM Ab Non-reactive Blood Type O Negative Antibody Screen Positive GARRY, IgG Interpret Not Performed GARRY, Poly Interpret Neg GARRY, Complement Interp Not Performed OB - PN A/P Assessment and Plan (1) (normal spontaneous vaginal delivery): Code(s): O80 - Encounter for full-term uncomplicated delivery Status: Acute Plan day: 0 Comments: A: PPD#0, doing well. P: Routine care. Exam Psych: Other: AVSS ABD soft, nontender, fundus firm EXT nontender
--- NOTE | 2025-03-07 14:34 | PM.OBDSVD ---
DS: Admitting Diagnosis Discharge Date 03/08/25 <Claribel Alonzo APRN - Last Filed: 03/08/25 09:45> Admitting Diagnosis IUP at term Labor <Sravan Goff MD - Last Filed: 03/07/25 14:37> DS: Discharge Diagnosis Discharge Diagnosis (1) (normal spontaneous vaginal delivery): Code(s): O80 - Encounter for full-term uncomplicated delivery <Sravan Goff MD - Last Filed: 03/07/25 14:37> Status: Acute <Sravan Goff MD - Last Filed: 03/07/25 14:37> OB - DS: Summary OB Procedures : None <Sravan Goff MD - Last Filed: 03/07/25 14:37> OB Procedures Intrapartum: Spontaneous Vag Delivery <Sravan Goff MD - Last Filed: 03/07/25 14:37> OB Procedures: : None <Sravan Goff MD - Last Filed: 03/07/25 14:37> Peripartum Data Delivery Method: Natural Vaginal <Claribel Alonzo APRN - Last Filed: 03/08/25 09:45> Laceration Description: None <Sravan Goff MD - Last Filed: 03/07/25 14:37> Episiotomy description: None <Sravan Goff MD - Last Filed: 03/07/25 14:37> complications: none <Claribel Alonzo APRN - Last Filed: 03/08/25 09:45> Status at Discharge Functional status at discharge: independent ambulation <Claribel Alonzo APRN - Last Filed: 03/08/25 09:45> Time Spent with Patient Time attestation: Total time spent providing and/or coordinating discharge services: <Sravan Goff MD - Last Filed: 03/07/25 14:37> Exam Const: General: cooperative <Claribel Alonzo APRN - Last Filed: 03/08/25 09:45> Orientation/consciousness: oriented to person, oriented to place and oriented to time <Claribel Alonzo APRN - Last Filed: 03/08/25 09:45> HENMT: Face/Nose/Sinus: Normal external nose present <Claribel Alonzo APRN - Last Filed: 03/08/25 09:45> Eyes: General: appearance normal, both eyes and all related structures <Claribel Alonzo APRN Last Filed: 03/08/25 09:45> Resp: Effort & Inspection: normal respiratory effort and able to speak in complete sentences <Claribel Alonzo APRN Last Filed: 03/08/25 09:45> Cardio: Rate: regular rate <Claribel Alonzo APRN - Last Filed: 03/08/25 09:45> GI: Inspection: normal to inspection <Claribel Alonzo APRN Last Filed: 03/08/25 09:45> Skin: General skin exam: normal color <[facility] Last Filed: 03/08/25 09:45> Neuro: General: oriented to person, oriented to place and oriented to time <Claribel Alonzo APRN Last Filed: 03/08/25 09:45> Extrem: General: normal to inspection and no calf tenderness <Claribel Alonzo APRN Last Filed: 03/08/25 09:45> Psych: Appearance: grossly normal <[facility]aribel [facility]zo [facility] Last Filed: 03/08/25 09:45> Mental Status: mental status grossly normal <Claribel Alonzo APRN Last Filed: 03/08/25 09:45> DS: Data Data Completed and Pending Labs on day of discharge: Labs from last 24 hours 03/06/25 23:38 WBC 14.0 H RBC 3.87 L Hgb 12.9 Hct 35.9 L MCV 92.8 MCH 33.3 MCHC 35.9 RDW 13.6 Plt Count 222 MPV 9.7 Immature Gran % (Auto) 1.4 H Neut % (Auto) 60.3 Lymph % (Auto) 27.6 [place] % (Auto) 9.7 H Eos % (Auto) 0.6 Baso % (Auto) 0.4 Lymph # (Auto) 3.85 H [place] # (Auto) 1.4 H Eos # (Auto) 0.1 Baso # (Auto) 0.1 Abs Immat Gran (auto) 0.20 H Absolute Neuts (auto) 8.4 H Absolute Nucleated RBC 0.000 Nucleated RBC % 0.0 Syphilis IgG/IgM Ab Non-reactive Blood Type O Negative Antibody Screen Positive Antibody Identification Pending Antigen Identification Pending GARRY, IgG Interpret Not Performed GARRY, Poly Interpret Neg GARRY, Complement Interp Not Performed <Sravan Goff MD - Last Filed: 03/07/25 14:37> Discharge Plan Discharge Attending physician on discharge: Sravan Goff <Sravan Goff MD - Last Filed: 03/07/25 14:37> Sravan Goff <Claribel Alonzo APRN - Last Filed: 03/08/25 09:45> Discharging Clinician: Sravan Goff <Sravan Goff MD - Last Filed: 03/07/25 14:37> Sravan Goff <Claribel Alonzo JOURNEYMAN PIPE WELDER - Last Filed: 03/08/25 09:45> Patient Disposition: Home <Sravan Goff MD - Last Filed: 03/07/25 14:37> Activity: pelvic rest <Sravan Goff MD - Last Filed: 03/07/25 14:37> pelvic rest <Clairbel Alonzo APRN - Last Filed: 03/08/25 09:45> Diet: regular <Sravan Goff MD - Last Filed: 03/07/25 14:37> regular <Claribel Alonzo JOURNEYMAN PIPE WELDER - Last Filed: 03/08/25 09:45> Discharge Instructions: Call or return if temperature above 100.4? F, increased abdominal pain, increased vaginal bleeding or any new problems. <Sravan Goff MD - Last Filed: 03/07/25 14:37> Patient Language: Kinyarwanda <Sravan Goff MD - Last Filed: 03/07/25 14:37> Stand Alone Forms: General Discharge Information <Sravan Goff MD - Last Filed: 03/07/25 14:37> Follow-up/Referrals: Sravan Goff MD [Physician, SAFETY CLOTHING AND EQUIPMENT DEVELOPER] - 6 Weeks <Sravan Goff MD - Last Filed: 03/07/25 14:37> Discharge Medications: New ibuprofen 600 mg tablet 600 mg PO Q6H PRN (Reason: cramps) Qty: 30 0RF Continued docusate sodium [Stool Softener] 100 mg tablet 100 mg PO DAILY DHA 200 mg capsule 200 mg PO DAILY escitalopram oxalate [Lexapro] 10 mg tablet 10 mg PO DAILY Discontinued ferrous sulfate 325 mg (65 mg iron) tablet 325 mg PO DAILY <Sravan Goff MD - Last Filed: 03/07/25 14:37> Date of admission: 03/06/25 23:22 <Sravan Goff MD - Last Filed: 03/07/25 14:37> Primary Care Provider: UNKNOWN,DOCTOR <Sravan Goff MD - Last Filed: 03/07/25 14:37> Admitting Provider: Sravan Goff <Srvaan Goff MD - Last Filed: 03/07/25 14:37> Attending physician on admission: Sravan Goff <Sravan Goff MD - Last Filed: 03/07/25 14:37> Condition: Stable <Sravan Goff MD - Last Filed: 03/07/25 14:37>
--- OUTSIDE RECORDS SUMMARY | 2025-03-07 15:54 | XMS_ITS | Clinical Summary ---
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 Gender Identity Not on file Sexual Orientation [...] SCDM series) 2016 Covid-19 Vaccine ( - 2024- season) 2024 03/27/2021, 08/04/2020, 07/13/2020 Influenza Vaccine (#1) 2024 03/27/2021, 2014 DTaP/Tdap/Td Vaccine (9 - Td or Tdap) 08/18/2030 08/18/2020, 09/21/2016, 04/20/2013, Additional history exists Hepatitis B Screening Completed 09/09/2014, 015 Pneumococcal vaccine <65 Aged Out No longer eligible based on patient's age to complete this topic [place] [employer] [place] [employer] [place] [email or web address] [place] [place] Care Teams Customer Resource Specialist Relationship Specialty Start Date End Date Unknown, Notinfile PCP - General 01/09/23 Unknown, Notinfile 01/09/23
[2025-03-07] MEDS: ESCITALOPRAM OXALATE 10 MG TABLET PO (20:56)
[2025-03-08] MEDS: IBUPROFEN 600 MG TABLET PO (02:00)
[2025-03-08 05:34] LABS: Hematocrit 32.7 % (37.0-47.0); Hemoglobin 11.3 g/dL (12.0-15.0)
[2025-03-08 07:45] VITALS: BP 121/75; PULSE 77; RESP 18; TEMP 37.1; O2SAT 99
[2025-03-08] MEDS: MULTIVIT/MIN/PREN/FOL AC/IRON TABLET 1 TAB PO (08:27)
--- NOTE | 2025-03-08 08:36 | PC.NURSE ---
Consulted with mother concerning needs and she shared her ability to independently latch infant optimally without pain. is currently latched optimally on the left breast in cradle position. Mother is feeding appropriately for growth of infant and understands stimulating to eat if needed. has had appropriate feedings in the last 24 hours meets the outcomes for weight, output, blood sugar and jaundice at this time. Reinforced understanding of milk production, transition of milk, signs of adequate intake, transition of stool, prevention/relief of engorgement, plugged ducts, mastitis, responsive watching for feeding cues, the different methods of stimulating to breastfeed 1-3 hours after the start of the last feeding, community resources, and when to call a provider using the resource of the feeding sheet along with the mom and baby guide. Mother voiced understanding of the information shared, is confident to continue effectively her infant at home, when to call for assistance, denies any additional assistance or education at this time. Reported to the Primary RN.
--- NOTE | 2025-03-08 09:45 | P.PNOB_ITS ---
OB - PN: Subj Subjective Date/time seen: 03/08/25 09:45 Patient comments: pain well controlled, tolerating diet and other (Decreasing lochia.) baby status: doing well and nursing well [place] feeding status: exclusively breast feeding OB - PN: Obj Data Labs 03/08/25 05:17 Labs: Laboratory Results - last 24 hr 03/06/25 03/08/25 23:38 05:17 Hgb 11.3 L Hct 32.7 L Antibody Identification Passive Due to RH Imm Glob Antigen Identification Not Reportable OB - PN A/P Plan day: 2 Plan: routine care and discharge home Time Spent With Patient Time: Total time spent is greater than 50% in coordination of care (as documented) at patient's floor/unit and/or counseling patient: Exam 2 Const: General: cooperative, healthy appearing and comfortable HENMT: Head: normal to inspection Resp: Effort & Inspection: normal respiratory effort and able to speak in complete sentences Cardio: Rate: regular rate Rhythm: regular rhythm GI: Inspection: normal to inspection Auscultation: normal bowel sounds Skin: General skin exam: normal color Neuro: General: oriented to person, oriented to place and oriented to time Extrem: General: normal to inspection and no calf tenderness Psych: Affect: normal affect Other: Abd: fundus firm below umbilicus, nontender Perineum: healing Ext: nontender
[2025-03-11 11:28] VITALS: BP 119/76; PULSE 70; RESP 18; TEMP 37; O2SAT 98
== END 2025-03-08 11:22 | disposition home or self-care (01) | DRG 807 ==
LOC: ANHLDR 23:44 → ANHOB2 03-07 03:02
PROVIDERS: Admitting Provider Obstetrics & Gynecology; Visit Provider Obstetrics & Gynecology
DX: O62.3 Precipitate labor (principal); Z37.0 Single live birth; O99.344 Other mental disorders complicating childbirth; Z3A.38 38 weeks gestation of pregnancy
CPT/HCPCS: 36415; 85014; 85018; 85025; 86593; 86850; 86880; 86900; 86901; 86902; A9270; J2590

== ENCOUNTER 2025-03-30 09:40 | Emergency (ER) | payer BC, SELFPAY ==
[2025-03-30 09:53] VITALS: BP 120/95; PULSE 90; RESP 16; TEMP 36.5; O2SAT 100
--- NOTE | 2025-03-30 10:01 | ED.SKABFB ---
HPI - Skin/Abscess/Foreign Bdy General Chief complaint: Unspecified Stated complaint: Rt breast pain/chills Time Seen by Provider: 03/30/25 09:40 Source: patient Mode of arrival: ambulatory Limitations: no limitations History of Present Illness HPI narrative: patient is a 34-year-old female who presents with right breast pain and chills for 24 hours. Patient has not taken anything for pain. Denies any fever, nausea, vomiting, diarrhea. Patient is currently a 3 week old baby. No history of mastitis. Related Data Home Medications ?Medication ?Instructions ?Recorded ?Confirmed ?Last Taken ?Type docosahexaenoic acid 200 mg 200 mg PO DAILY 11/15/24 03/30/25 02/16/25 History capsule ( DHA) escitalopram oxalate 10 mg tablet 10 mg PO DAILY 11/15/24 03/30/25 02/16/25 History (Lexapro) docusate sodium 100 mg tablet 100 mg PO DAILY 01/03/25 03/30/25 02/16/25 History (Stool Softener) ferrous sulfate 325 mg (65 mg 325 mg PO DAILY 01/03/25 03/30/25 02/16/25 History iron) tablet Allergies Allergy/AdvReac Type Severity Reaction Status Date / Time nitrofurantoin (From Allergy Severe Hives Verified 03/30/25 09:58 Macrobid) Review of Systems Review of Systems: All systems reviewed & are unremarkable except as noted in HPI and below Constitutional: Constitutional: Denies body ache(s), Denies chills, Denies fatigue, Denies fever(s), Denies headache(s), Denies malaise and Denies weakness Eyes: Eyes: Denies blurry vision, Denies irritation and Denies loss of vision ENT: Denies otalgia, Denies headache(s), Denies nasal discharge, Denies sinus pain and Denies sore throat Cardiovascular: Cardiovascular: Denies chest pain, Denies irregular heart rhythm and Denies dyspnea Respiratory: Respiratory: Denies dyspnea Gastrointestinal: Gastrointestinal: Denies abdominal pain, Denies melena, Denies hematochezia, Denies diarrhea, Denies nausea and Denies vomiting Musculoskeletal: Musculoskeletal: Denies back pain, Denies myalgias and Denies arthralgias Integumentary/Breasts: Skin/Breast: Denies pruritus, Reports erythema, Denies rash, Reports skin pain and Reports skin swelling Neurologic: Denies headache(s), Denies loss of vision and Denies weakness Psychiatric: Psychiatric: Reports no additional psychiatric complaints Endocrine: Endocrine: Denies fatigue PMFSH Past Medical History Medical History Anxiety Surgical History Surgical History History of foot surgery Family History Family History Other Patient denies significant medical history Social History Social History Smoking status: Never smoker Second hand tobacco smoke exposure: No Alcohol intake: never Substance use: never Substance use type: marijuana Last use: 10/25/23 Lack of Transportation: No Lack of Food: Never True Current Housing: I Have Housing Concerned About Future Housing: No Difficulty Paying Gas/Electric Bills: No Difficulty Paying for Meds: No Currently Unemployed: No Education: Decline to Answer Difficulty w/ Childcare or Family Care: No Living arrangements: with family Spiritual care concerns: No Comments At time of signature, agree with nursing past medical, surgical, social and family history. There is no relevant family history pertinent to the presenting complaint. Exam Const: General: cooperative, healthy appearing, comfortable, no acute distress and well nourished Nutritional Appearance: well nourished Orientation/consciousness: patient oriented x3 Limitations: no limitations HENMT: Head: normal to inspection, normocephalic and atraumatic Ears: hearing grossly normal bilaterally and external ears normal Face/Nose/Sinus: Normal external nose present, normal facial exam and face symmetric Face and sinus: normal facial exam and face symmetric Mouth: Yes lip normal Eyes: General: appearance normal, both eyes and all related structures Alignment and Position: alignment normal and position normal Periorbital: periorbital findings normal Eyelids: eyelids normal Pupils: Equal, round and reactive pupils present EOM: EOMs intact bilaterally Neck: Neck: normal visual inspection, full ROM and supple Chest: Chest palpation & inspection: normal inspection of the chest Breast/axilla inspection: abnormal inspection of the breast right lower outer erythema and other (warmth, induration) Resp: Effort & Inspection: normal respiratory effort and able to speak in complete sentences Auscultation: clear to auscultation bilaterally Cardio: Rate: regular rate Rhythm: regular rhythm Heart sounds: S1 normal heart sound present and S2 normal heart sound present GI: Inspection: normal to inspection Skin: General skin exam: normal color and no rashes or lesions noted Neuro: General: patient oriented x3 and moves all extremities Cranial nerves: Yes Equal, round and reactive pupils present Speech: normal speech Gait exam (Neuro): Normal gait present Extrem: General: normal to inspection, full ROM and no edema Psych: Appearance: grossly normal and well kempt Mental Status: mental status grossly normal Speech and movement: Normal speech and movement present Affect: normal affect Attitude: cooperative Thought process: Normal thought process present Course Course Emergency Course: Patient is aware of diagnosis, understands and agrees to treatment plan. Anticipatory guidance given. Patient agrees to follow-up as directed and is aware of reasons to seek care at the emergency department. Portions of this record may have been created with voice recognition software Level of Care: Express Care Visit Vital Signs Vital signs: Vital Signs Temperature 36.5 C 03/30/25 09:53 Pulse Rate 90 03/30/25 09:53 Respiratory Rate 16 03/30/25 09:53 Blood Pressure 120/95 H 03/30/25 09:53 Pulse Oximetry 100 03/30/25 09:53 Temperature 36.5 C 03/30/25 09:53 Pulse Rate 90 03/30/25 09:53 Respiratory Rate 16 03/30/25 09:53 Blood Pressure 120/95 H 03/30/25 09:53 Pulse Oximetry 100 03/30/25 09:53 Reviewed MDM - Skin/Abscess/Foreign Bdy MDM Narrative Medical decision making narrative: symptoms and exam consistent with mastitis. Will treat with Keflex. Instructed patient to continue nursing and expressing milk along with using heat and elevation. Pt well hydrated appearing, in no respiratory distress, hemodynamically stable. Recommend supportive care. The patient is stable at time of discharge the clinical impression was discussed and the patient was given the opportunity to ask questions, which were addressed as completely as possible given the information available at present. Anticipatory guidance and return to care precautions were discussed and the importance of primary care follow-up was stressed and encouraged. The patient voiced understanding of the plan, indications to return, and the need for follow-up. Exam findings show no acute concerns or changes Patient is appropriate for outpatient treatment and follow-up. Differential Diagnosis Differential diagnosis: Likely abscess of skin or subcutaneous tissue, cellulitis and other ( Mastitis) Medical Records Attestation: I reviewed the patient's medical records. Discharge Plan Discharge Clinical Impression: Mastitis Patient Disposition: Home Condition: Stable Instructions: Mastitis (ED) Additional Instructions: Please follow up with your Primary Care Doctor within 48-72 hours - call for an appointment. apply moist heat 3-4 times daily for 10-15 minutes. Elevate the affected area if possible Please take Antibiotics as directed. For pain, you may take: Tylenol 650-1000mg by mouth every 4-6 hours. Do not exceed 4000mg in 24 hours. Advil (Ibuprofen) 600 mg by mouth every 6 hours. Do not exceed 2400mg in 24 hours. 8 AM: Tylenol 11 AM: Ibuprofen 2 PM: Tylenol 5 PM: Ibuprofen 8 PM: Tylenol 11 PM: Ibuprofen 2 AM: Tylenol 5 AM: Ibuprofen If you experience any worsening redness, swelling, streaking (red lines), fever or chills please go to the ER Patient Language: Romansh Prescriptions: New cephalexin 500 mg capsule 500 mg PO QID 10 Days Qty: 40 0RF No Action ferrous sulfate 325 mg (65 mg iron) tablet 325 mg PO DAILY docusate sodium [Stool Softener] 100 mg tablet 100 mg PO DAILY DHA 200 mg capsule 200 mg PO DAILY escitalopram oxalate [Lexapro] 10 mg tablet 10 mg PO DAILY ibuprofen 600 mg tablet 600 mg PO Q6H PRN (Reason: cramps) Qty: 30 0RF Follow-up/Referrals: Nate Meek MD [Physician, Family Practice] - 3 Days Time of Disposition: 10:11
== END 2025-03-30 10:15 | disposition home or self-care (01) ==
PROVIDERS: Emergency Provider Nurse Practitioner Family
DX: O91.22 Nonpurulent mastitis associated with the puerperium (principal); O99.345 Other mental disorders complicating the puerperium; F41.9 Anxiety disorder, unspecified
CPT/HCPCS: 99213; G0463